=== PATIENT | female | born 1995 | race Caucasian/White ===

== ENCOUNTER 2016-07-04 15:32 | Emergency (ER) | payer MEDICAID, OTHER ==
[~2016-07-04] VITALS: Ht 162.6 cm; Wt 53.0 kg
[~2016-07-04 15:32] MED LIST: ADVI200C9 PO; IBUP-232 PO
[2016-07-04 15:37] VITALS: BP 117/76; PULSE 96; RESP 16; TEMP 97.7; O2SAT 98
--- NOTE | 2016-07-04 17:02 | PD ---
HPI Chief Complaint: GI Complaint Time Seen by Provider: 16:47 Travel History International Travel<30 days: No Contact w/Intl Traveler<30days: No Traveled to known affect area: No History of Present Illness HPI 20-year-old female complains of headache with nausea vomiting. Patient states that symptoms started this morning. Patient states that she has syncopal episode this morning also. Patient denies any injury from the syncopal episode. Patient states that she has recurrent headache since she was 12-year- old. Patient was seen by physician at that time for headache. Patient states that she never had CT scan of the brain. Patient states that headache is frontal throbbing headache. Patient denies any visual change. Patient denies any photophobia. Patient states that she has nausea vomiting with headache. Patient denies any neck pain. She denies any chest pain or shortness of breath. Patient denies abdominal pain. Patient denied dysuria or frequency. Patient denies any vaginal discharge or bleeding. Patient absolutely denies any chance of being . Patient states that she was told she has plus headache and migraine headache in the past. PFSH Past Medical History Asthma: Yes Diminished Hearing: No Respiratory: Yes (CHRONIC BREATHING ISSUES) Immunizations Current: Yes ?: Not LMP: 06/30/2016-CURRENTLY ON : 3 Para: 1 Miscarriage: 1 : 1 Past Surgical History Oral Surgery: Yes (TOOTH EXTRACTION) Social History Alcohol Use: No Tobacco Use: No Substance Use: No Allergies-Medications (Allergen,Severity, Reaction): Coded Allergies: Penicillin (Verified Allergy, Severe, hives, 07/04/16) Seafood (Verified Allergy, Severe, PT DENIES ALLERGY, 07/04/16) [place] (Verified Allergy, Intermediate, rash and hives, 07/04/16) Sulfa (Verified Allergy, Intermediate, ITCHING, 07/04/16) Bactrim (Verified Adverse Reaction, Intermediate, HIVES, 07/04/16) Reported Meds & Prescriptions Reported Meds & Active Scripts Active No Active Prescriptions or Reported Medications Review of Systems General / Constitutional: No: Fever Eyes: No: Visual changes HENT: Positive: Headaches Cardiovascular: No: Chest Pain or Discomfort Respiratory: No: Shortness of Breath Gastrointestinal: Positive: Nausea, Vomiting, No: Abdominal Pain Genitourinary: No: Dysuria Musculoskeletal: No: Pain Skin: No Rash Neurologic: No: Weakness Psychiatric: No: Depression Endocrine: No: Polydipsia Hematologic/Lymphatic: No: Easy Bruising Physical Exam Narrative GENERAL: Well-nourished, well-developed patient. SKIN: Warm and dry. HEAD: Normocephalic. EYES: No scleral icterus. No injection or drainage. Pupils 3 millimeters equal reactive. NECK: Supple, trachea midline. No JVD or lymphadenopathy. No meningismus CARDIOVASCULAR: Regular rate and rhythm without murmurs, gallops, or rubs. RESPIRATORY: Breath sounds equal bilaterally. No accessory muscle use. GASTROINTESTINAL: Abdomen soft, non-tender, nondistended. MUSCULOSKELETAL: No cyanosis, or edema. BACK: Nontender without obvious deformity. No CVA tenderness. Neurologic exam normal. Data Data Last Documented VS Vital Signs Date Time Temp Pulse Resp B/P Pulse Ox O2 Delivery O2 Flow Rate FiO2 07/04/16 15:37 97.7 96 16 117/[address] Brain W/O Iv Contrast(Rout) (07/04/16 16:56) [facility] Medical Decision Making Medical Screen Exam Complete: Yes Emergency Medical Condition: Yes Interpretation(s) [address] scan of the brain negative acute pathology. Differential Diagnosis Differential diagnosis including migraine headache, tension headache, cluster headache. Narrative Course 20-year-old female with headache, nausea vomiting and syncope. History of recurrent headache. Diagnosis Primary Impression: Cephalgia Qualified Code: R51 - Nonintractable episodic headache, unspecified headache type Patient Instructions: General Instructions Additional Instructions: Take medication as needed for headache. Follow-up with neurologist. Return if worse. Med/Other Pt SpecificInfo: Prescription(s) given Scripts Ondansetron Odt (Zofran Odt)4 Mg Tab4 Mg SL Q6HR PRN (Nausea/Vomiting) #10 TAB Ref 0 Prov:Oni Adorno MD 07/04/16 Ilwnnjdasr-Zenxsspcxzwgj-Vrtgwrdr (Fioricet)50-300-40 Mg Cap1-2 Cap PO Q6H PRN ( HEADACHE) #30 CAP Ref 0 Prov:Oni Adorno MD 07/04/16 Disposition: 01 DISCHARGE HOME Condition: Stable Oni Adorno MD Jul 04, 2016 17:02
--- NOTE | 2016-07-04 17:38 | RADHPO ---
EXAM DATE/TIME: 07/04/2016 17:18 [place] COMPARISON: No previous studies available for comparison. INDICATIONS : Cephalgia.Nausea. Vomiting. RADIATION DOSE: 51.64 CTDIvol (mGy) MEDICAL HISTORY : None SURGICAL HISTORY : None. ENCOUNTER: Initial ACUITY: 1 day PAIN SCALE: 5/10 LOCATION: Bilateral frontal TECHNIQUE: Multiple contiguous axial images were obtained of the head. Using automated exposure control and adj ustment of the mA and/or kV according to patient size, radiation dose was kept as low as reasonably a chievable to obtain optimal diagnostic quality images. FINDINGS: CEREBRUM: The ventricles are normal for age. No evidence of midline shift, mass lesion, hemorrhage or acute in farction. No extra-axial fluid collections are seen. POSTERIOR FOSSA: The cerebellum and brainstem are intact. The 4th ventricle is midline. The cerebellopontine angle i s unremarkable. EXTRACRANIAL: The visualized portion of the orbits is intact. SKULL: The calvaria is intact. No evidence of skull fracture. CONCLUSION: Normal examination. Tierra Tanner MD on July 04, 2016 at 17:36 Board Certified Radiologist. This report was verified electronically.
[2016-07-04] MEDS ORDERED: BUTA1CAP PO (17:46)
[2016-07-04] MEDS ORDERED: ZOFR4TAB3 SL (17:46)
[2016-07-04 18:24] VITALS: BP 113/74
== END 2016-07-04 18:24 | disposition home or self-care (01) ==
LOC: PHED 15:32 → PHEFT 18:24
DX: R51 Headache (principal); J45.909 Unspecified asthma, uncomplicated
CPT/HCPCS: 70450

== ENCOUNTER 2016-08-02 10:07 | Emergency (ER) | payer MEDICAID ==
[~2016-08-02] VITALS: Ht 165.1 cm; Wt 52.0 kg
[~2016-08-02 10:07] MED LIST changes: -ADVI200C9 PO; +BUTA1CAP PO; -IBUP-232 PO; +ZOFR4TAB3 SL
[2016-08-02 10:12] VITALS: BP 100/75; PULSE 87; RESP 16; TEMP 97.7; O2SAT 100
--- NOTE | 2016-08-02 10:47 | PD ---
HPI Chief Complaint: ENT Complaint Time Seen by Provider: 10:40 Travel History International Travel<30 days: No Contact w/Intl Traveler<30days: No Traveled to known affect area: No History of Present Illness HPI 21-year-old female came to the emergency room with history of sore throat. Her boyfriend is here with her. He is giving additional history. Patient says that she feels like there are needles in her throat. She has been sick since July 11. Her boyfriend was sick around the same time as well. He was seen in an urgent care and was diagnosed with strep throat and was started on amoxicillin. He says that he had some amoxicillin left over from his treatment and when she got sick she started taking those medications and took 250 mg twice a day for less than one week. She felt better after that but she also ran out of amoxicillin so she did not refill. Patient does not have primary care and hence did not go to see any doctor. About a week ago her symptoms started to return and last night she was worse with the pain. Patient has had multiple strep throats in the past. She felt like she had fever yesterday but did not take her temperature. Vital signs here are stable. Patient says that she is allergic to penicillin but apparently she tolerated amoxicillin just fine. [facility] Past Medical History Narrative Medical List of her past medical, social and family history is reviewed from the nursing note. Asthma: Yes Diminished Hearing: No Respiratory: Yes (CHRONIC BREATHING ISSUES) Immunizations Current: Yes ?: Not : 3 Para: 1 Miscarriage: 1 : 1 Past Surgical History Oral Surgery: Yes (TOOTH EXTRACTION) Social History Alcohol Use: Yes ("[employer]", OCCASIONALLY) Tobacco Use: No Substance Use: No Allergies-Medications (Allergen,Severity, Reaction): Coded Allergies: Penicillin (Verified Allergy, Severe, hives, 08/02/16) Seafood (Verified Allergy, Severe, PT DENIES ALLERGY, 08/02/16) [place] (Verified Allergy, Intermediate, rash and hives, 08/02/16) Sulfa (Verified Allergy, Intermediate, ITCHING, 08/02/16) Bactrim (Verified Adverse Reaction, Intermediate, HIVES, 08/02/16) Comments List of her allergies reviewed from the nursing note. Reported Meds & Prescriptions Reported Meds & Active Scripts Active Amoxicillin 500 Mg Cap 500 Mg PO TID 10 Days Narrative Medication List of her home medications reviewed from the nursing note. Review of Systems Except as stated in HPI: all other systems reviewed are Neg Physical Exam Narrative GENERAL: Awake, alert, mild distress SKIN: Warm and dry. HEAD: Atraumatic. Normocephalic. EYES: Pupils equal and round. No scleral icterus. No injection or drainage. ENT: No nasal bleeding or discharge. Mucous membranes pink and moist. Pharyngeal erythema with exudates of the tonsil. Submandibular lymphadenopathy which are tender NECK: Trachea midline. No JVD. CARDIOVASCULAR: Regular rate and rhythm. No murmur appreciated. RESPIRATORY: No accessory muscle use. Clear to auscultation. Breath sounds equal bilaterally. GASTROINTESTINAL: Abdomen soft, non-tender, nondistended. Hepatic and splenic margins not palpable. MUSCULOSKELETAL: No obvious deformities. No clubbing. No cyanosis. No edema. NEUROLOGICAL: Awake and alert. No obvious cranial nerve deficits. Motor grossly within normal limits. Normal speech. PSYCHIATRIC: Appropriate mood and affect; insight and judgment normal. Data Data Last Documented VS Orders Group A Rapid Strep Screen (08/02/16 11:13) Amoxicillin (Trimox) (08/02/16 11:15) Ibuprofen (Motrin) (08/02/16 11:15) Strep Culture (Group A) (08/02/16 11:16) MDM Medical Decision Making Medical Screen Exam Complete: Yes Emergency Medical Condition: Yes Medical Record Reviewed: Yes Differential Diagnosis Strep throat, pharyngitis Narrative Course 11:53 AM rapid strep is negative. However patient is partially treated at this point given her one week of suboptimal amoxicillin treatment. I would prefer to start her on amoxicillin for 10 days of higher dose. I have explained this to the patient along with the fact that she should not take somebody else's medications without her doctor's advise. She understands. She was given a dose of amoxicillin and Motrin here. Patient will be discharged home. Procedures EKG Prior to Arrival: No Diagnosis Primary Impression: Odynophagia Additional Impression: Strep throat Referrals: Primary Care Physician 3 days Additional Instructions: Please return to the ER if the condition worsens or any other new concerns. Take the medication as per the prescription direction and complete the course. Do not take someone else's medications without her doctor's advise. Do not share drinks, toothbrush, or anything else by mouth. Med/Other Pt SpecificInfo: Prescription(s) given Scripts Amoxicillin 500 Mg [id number] Mg PO TID 10 Days Ref 0 Prov:Jerel Duran MD 08/02/16 Disposition: 01 DISCHARGE HOME Condition: Stable Jerel Duran MD Aug 02, 2016 10:47 Scripts Amoxicillin 500 Mg [id number] Mg PO TID 10 Days Ref 0 Prov:Jerel Duran MD 08/02/16 Disposition: 01 DISCHARGE HOME Condition: Jerel Baker MD Aug 02, 2016 10:47
[2016-08-02] MEDS ORDERED: IBUPROFEN 600 MG TAB PO ONE (11:15)
[2016-08-02] MEDS ORDERED: AMOXICILLIN (TRIHYDRATE) 500 MG CAP PO ONE (11:15)
[2016-08-02] MEDS ORDERED: AMOX500C PO (11:56)
== END 2016-08-02 12:41 | disposition home or self-care (01) ==
LOC: PHEFT 10:07
DX: R13.10 Dysphagia, unspecified (principal)
CPT/HCPCS: 87081; 87880; 99283

== ENCOUNTER 2016-09-18 17:20 | Emergency (ER) | payer MEDICAID, OTHER ==
[~2016-09-18] VITALS: Ht 162.6 cm; Wt 54.0 kg
[~2016-09-18 17:20] MED LIST changes: +AMOX500C PO; -BUTA1CAP PO; -ZOFR4TAB3 SL
[2016-09-18 17:23] VITALS: BP 104/80; PULSE 115; RESP 16; TEMP 97.9; O2SAT 98
[2016-09-18] MEDS ORDERED: SODIUM CHLOR 0.9% 1000 ML INJ 1,000 ML IV SCH (18:02)
--- NOTE | 2016-09-18 18:06 | PD ---
HPI Chief Complaint: GI Complaint Time Seen by Provider: 17:54 Travel History International Travel<30 days: No Contact w/Intl Traveler<30days: No Traveled to known affect area: No History of Present Illness HPI The patient is a 21-year-old female who presents to the emergency department for nausea, vomiting, diarrhea, and intermittent abdominal pain. The patient states her symptoms started earlier today with diarrhea, described as watery without any visible blood. The patient then developed nausea followed by several episodes of vomiting. The patient complains of suprapubic and left lower quadrant abdominal pain that is described as sharp, crampy, and intermittent. The patient denies any fever, chills, sweats, or sick contacts. The patient denies any recent international travel, eating of unusual foods, or drinking well water. The patient denies any previous abdominal surgeries. The patient's last menstrual cycle was August 21, 2016, she denies . The patient denies any vaginal bleeding, vaginal discharge, dysuria, frequency, urgency, or hematuria. PFSH Past Medical History Asthma: Yes Diminished Hearing: No Respiratory: Yes (CHRONIC BREATHING ISSUES) Immunizations Current: Yes Influenza Vaccination: No ?: Not LMP: 08/21/16 : 3 Para: 1 Miscarriage: 1 : 1 Past Surgical History Oral Surgery: Yes (TOOTH EXTRACTION) Social History Alcohol Use: Yes ("C[employer]", OCCASIONALLY) Tobacco Use: No Substance Use: No Allergies-Medications (Allergen,Severity, Reaction): Coded Allergies: Penicillin (Verified Allergy, Severe, hives, 08/02/16) Seafood (Verified Allergy, Severe, PT DENIES ALLERGY, 08/02/16) [place] (Verified Allergy, Intermediate, rash and hives, 08/02/16) Sulfa (Verified Allergy, Intermediate, ITCHING, 08/02/16) Bactrim (Verified Adverse Reaction, Intermediate, HIVES, 08/02/16) Reported Meds & Prescriptions Reported Meds & Active Scripts Active Phenergan (Promethazine HCl) 25 Mg Tab 25 Mg PO Q6H PRN Zofran Odt (Ondansetron Odt) 4 Mg Tab 4 Mg SL Q6HR PRN Zofran Odt (Ondansetron Odt) 4 Mg Tab 4 Mg SL Q6HR PRN Review of Systems Except as stated in HPI: all other systems reviewed are Neg General / Constitutional: No: Fever Cardiovascular: No: Chest Pain or Discomfort Respiratory: No: Shortness of Breath Gastrointestinal: Positive: Nausea, Vomiting, Diarrhea, Abdominal Pain Genitourinary: No: Dysuria Musculoskeletal: No: Weakness Neurologic: No: Dizziness Physical Exam Narrative GENERAL: Awake, alert, pleasant 21-year-old female who appears her stated age and is in no acute respiratory distress. SKIN: Focused skin assessment warm/dry. HEAD: Atraumatic. Normocephalic. EYES: Pupils equal and round. No scleral icterus. No injection or drainage. ENT: No nasal bleeding or discharge. Tongue ring in place. Slightly dry mucous membranes. NECK: Trachea midline. No JVD. CARDIOVASCULAR: Regular, tachycardic with a heart rate of 110. RESPIRATORY: No accessory muscle use. Clear to auscultation. Breath sounds equal bilaterally. GASTROINTESTINAL: Abdomen soft, mild tenderness in the left lower quadrant. Negative McBurney's. Negative Hauser's. Back: No CVA tenderness. Musculoskeletal: No cyanosis, clubbing, or edema. NEUROLOGICAL: Awake and alert. No obvious cranial nerve deficits. Motor grossly within normal limits. Normal speech. PSYCHIATRIC: Appropriate mood and affect; insight and judgment normal. Data Data Last Documented VS Vital Signs Date Time Temp Pulse Resp B/P Pulse Ox O2 Delivery O2 Flow Rate FiO2 09/18/16 19:20 98.7 86 18 103/77 99 Room Air Orders Complete Blood Count With Diff (09/18/16 18:02) Comprehensive Metabolic Panel (09/18/16 18:02) Lipase (09/18/16 18:02) Urinalysis - C+S If Indicated (09/18/16 18:02) Iv Access Insert/Monitor (09/18/16 18:02) Ecg Monitoring (09/18/16 18:02) Oximetry (09/18/16 18:02) Morphine Inj (Morphine Inj) (09/18/16 18:15) Ondansetron Inj (Zofran Inj) (09/18/16 18:15) Sodium Chlor 0.9% 1000 Ml Inj (Ns 1000 M (09/18/16 18:02) Sodium Chloride 0.9% Flush (Ns Flush) (09/18/16 18:15) Famotidine Inj (Pepcid Inj) (09/18/16 18:15) Dicyclomine (Bentyl) (09/18/16 18:15) Ondansetron Inj (Zofran Inj) (09/18/16 19:00) Labs Laboratory Tests Test 09/18/16 09/18/16 18:18 18:20 White Blood Count 13.2 TH/MM3 Red Blood Count 5.27 MIL/MM3 Hemoglobin 14.6 GM/DL Hematocrit 43.7 % Mean Corpuscular Volume 82.9 FL Mean Corpuscular Hemoglobin 27.8 PG Mean Corpuscular Hemoglobin 33.5 % Concent Red Cell Distribution Width 13.5 % Platelet Count 289 TH/MM3 Mean Platelet Volume 7.8 FL Neutrophils (%) (Auto) 89.9 % Lymphocytes (%) (Auto) 3.8 % Monocytes (%) (Auto) 3.0 % Eosinophils (%) (Auto) 0.5 % Basophils (%) (Auto) 2.8 % Neutrophils # (Auto) 11.8 TH/MM3 Lymphocytes # (Auto) 0.5 TH/MM3 Monocytes # (Auto) 0.4 TH/MM3 Eosinophils # (Auto) 0.1 TH/MM3 Basophils # (Auto) 0.4 TH/MM3 CBC Comment DIFF FINAL Differential Comment Sodium Level 138 MEQ/L Potassium Level 3.5 MEQ/L Chloride Level 103 MEQ/L Carbon Dioxide Level 24.7 MEQ/L Anion Gap 10 MEQ/L Blood Urea Nitrogen 14 MG/DL Creatinine 0.88 MG/DL Estimat Glomerular Filtration 81 ML/MIN Rate Random Glucose 97 MG/DL Calcium Level 9.0 MG/DL Total Bilirubin 1.6 MG/DL Aspartate Amino Transf 16 U/L (AST/SGOT) Alanine Aminotransferase 22 U/L (ALT/SGPT) Alkaline Phosphatase 100 U/L Total Protein 8.5 GM/DL Albumin 4.3 GM/DL Lipase 148 U/L Urine Color YELLOW Urine Turbidity CLEAR Urine pH 6.0 Urine Specific [place] 1.025 Urine Protein NEG mg/dL Urine Glucose (UA) NEG mg/dL Urine Ketones NEG mg/dL Urine Occult Blood NEG Urine Nitrite NEG Urine Bilirubin NEG Urine Leukocyte Esterase NEG Urine WBC 0-2 /hpf Urine Squamous Epithelial 0-5 /hpf Cells Urine Bacteria RARE /hpf Microscopic Urinalysis Comment CULT NOT INDICATED MDM Medical Decision Making Medical Screen Exam Complete: Yes Emergency Medical Condition: Yes Medical Record Reviewed: Yes Interpretation(s) UA unremarkable Laboratory Tests Test 09/18/16 18:18 White Blood Count 13.2 TH/MM3 Red Blood Count 5.27 MIL/MM3 Hemoglobin 14.6 GM/DL Hematocrit 43.7 % Mean Corpuscular Volume 82.9 FL Mean Corpuscular Hemoglobin 27.8 PG Mean Corpuscular Hemoglobin 33.5 % Concent Red Cell Distribution Width 13.5 % Platelet Count 289 TH/MM3 Mean Platelet Volume 7.8 FL Neutrophils (%) (Auto) 89.9 % Lymphocytes (%) (Auto) 3.8 % Monocytes (%) (Auto) 3.0 % Eosinophils (%) (Auto) 0.5 % Basophils (%) (Auto) 2.8 % Neutrophils # (Auto) 11.8 TH/MM3 Lymphocytes # (Auto) 0.5 TH/MM3 Monocytes # (Auto) 0.4 TH/MM3 Eosinophils # (Auto) 0.1 TH/MM3 Basophils # (Auto) 0.4 TH/MM3 CBC Comment DIFF FINAL Differential Comment Sodium Level 138 MEQ/L Potassium Level 3.5 MEQ/L Chloride Level 103 MEQ/L Carbon Dioxide Level 24.7 MEQ/L Anion Gap 10 MEQ/L Blood Urea Nitrogen 14 MG/DL Creatinine 0.88 MG/DL Estimat Glomerular Filtration 81 ML/MIN Rate Random Glucose 97 MG/DL Calcium Level 9.0 MG/DL Total Bilirubin 1.6 MG/DL Aspartate Amino Transf 16 U/L (AST/SGOT) Alanine Aminotransferase 22 U/L (ALT/SGPT) Total Protein 8.5 GM/DL Albumin 4.3 GM/DL Lipase 148 U/L Differential Diagnosis Differential diagnosis includes gastroenteritis, infectious diarrhea, enteritis , colitis, atypical appendicitis, dehydration, electrolyte abnormality. Narrative Course IV was established, labs are drawn and sent, and the patient was placed on cardiac telemetry monitoring and continuous pulse oximetry monitoring. The patient was administered morphine, Zofran, Bentyl, Pepcid, and IV fluids. The patient was reevaluated at 6:50 PM, she still had mild nausea, however, the pain had resolved. The patient was administered another dose of Zofran. White count is mildly elevated at 13.2, abdominal exam is now benign, do not believe the patient has atypical appendicitis. The patient will be discharged home on Zofran/Phenergan and advised to have a clear liquid diet and advance as tolerated. She is advised to return if pain localizes to the right lower quadrant and she develops a fever. Diagnosis Primary Impression: Gastroenteritis Patient Instructions: General Instructions Additional Instructions: Medications as directed. Clear liquid diet and advance as tolerated. Zofran as needed for pain. Follow-up with your primary physician. Return if symptoms worsen or progress. Med/Other Pt SpecificInfo: Prescription(s) given Scripts Promethazine (Phenergan)25 Mg Tab25 Mg PO Q6H PRN (Nausea/Vomiting) #12 TAB Ref 0 Prov:Praful Kramer MD 09/18/16 Ondansetron Odt (Zofran Odt)4 Mg Tab4 Mg SL Q6HR PRN (Nausea/Vomiting) #7 TAB Ref 0 Prov:Praful Kramer MD 09/18/16 Ondansetron Odt (Zofran Odt)4 Mg Tab4 Mg SL Q6HR PRN (Nausea/Vomiting) #10 TAB Ref 0 Prov:Praful Kramer MD 09/18/16 Disposition: 01 DISCHARGE HOME Condition: Stable Praful Kramer MD Sep 18, 2016 18:06
[2016-09-18] MEDS ORDERED: SODIUM CHLORIDE 0.9% FLUSH 10 ML FLUSH IV FLUSH PRN (18:15)
[2016-09-18] MEDS ORDERED: DICYCLOMINE HCL 10 MG CAP PO ONE (18:15)
[2016-09-18] MEDS ORDERED: FAMOTIDINE 20 MG/2 ML VIAL IV PUSH ONE (18:15)
[2016-09-18] MEDS ORDERED: MORPHINE SULFATE 4 MG/ML INJ IV PUSH ONE (18:15)
[2016-09-18] MEDS ORDERED: ONDANSETRON HCL 4 MG/2 ML VIAL IVP ONE (18:15)
[2016-09-18 18:20] VITALS: O2SAT 98
[2016-09-18 18:30] LABS: AUTOMATED NEUTROPHIL # 11.8 TH/MM3 (1.8-7.7); BASOPHIL # 0.4 TH/MM3 (0-0.2); BASOPHIL % 2.8 % (0.0-2.0); EOSINOPHIL # 0.1 TH/MM3 (0-0.4); EOSINOPHIL % 0.5 % (0.0-4.0); HEMATOCRIT 43.7 % (35.0-46.0); LYMPH % 3.8 % (9.0-44.0); LYMPHOCYTE # 0.5 TH/MM3 (1.0-4.8); MEAN CELL VOLUME 82.9 FL (80.0-100.0); MEAN CORPUSCULAR HEMOGLOBIN 27.8 PG (27.0-34.0); MEAN CORPUSCULAR HGB CONC 33.5 % (32.0-36.0); NEUT % 89.9 % (16.0-70.0); PLATELET COUNT 289 TH/MM3 (150-450); RED BLOOD COUNT 5.27 MIL/MM3 (4.00-5.30); RED CELL DISTRIBUTION WIDTH 13.5 % (11.6-17.2); WHITE BLOOD COUNT 13.2 TH/MM3 (4.0-11.0)
[2016-09-18 18:34] LABS: BLOOD, URINE NEG (NEG); GLUCOSE,URINE NEG (NEG); KETONE, URINE NEG (NEG); NITRITE,URINE NEG (NEG)
[2016-09-18] MEDS ORDERED: ZOFR4TAB3 SL ×2 (18:36→18:51)
[2016-09-18 18:40] LABS: HEMO FLAGS DIFF FINAL
[2016-09-18 18:41] LABS: CHLORIDE 103 MEQ/L (98-107); POTASSIUM 3.5 MEQ/L (3.5-5.1); SODIUM (NA) 138 MEQ/L (136-145)
[2016-09-18 18:45] LABS: ANION GAP 10 MEQ/L (5-15); BICARBONATE 24.7 MEQ/L (21.0-32.0); BLOOD UREA NITROGEN 14 MG/DL (7-18)
[2016-09-18 18:48] LABS: ALT (GPT) 22 U/L (10-53); AST (GOT) 16 U/L (15-37); GLOMERULAR FILTRATION RATE 81 ML/MIN (>89)
[2016-09-18 18:49] LABS: TOTAL BILIRUBIN ADULT 1.6 MG/DL (0.2-1.0)
[2016-09-18 18:50] LABS: ALKALINE PHOSPHATASE 100 U/L (45-117)
[2016-09-18] MEDS ORDERED: PROM25TA5 PO (18:51)
[2016-09-18 19:00] LABS: URINE COLOR YELLOW (YELLW/STRAW)
[2016-09-18] MEDS ORDERED: ONDANSETRON HCL 4 MG/2 ML VIAL IV PUSH ONE (19:00)
[2016-09-18 19:01] LABS: BACTERIA, URINE RARE /hpf; COMMENT (UR) CULT NOT INDICATED; CULTURE IF INDICATED CULT NOT INDICATED; SQUAMOUS EPITHELIAL CELL URINE 0-5 /hpf (0-5); WBC, URINE 0-2 /hpf (0-5)
[2016-09-18 19:20] VITALS: BP 103/77; PULSE 86; RESP 18; TEMP 98.7; O2SAT 99
== END 2016-09-18 20:04 | disposition home or self-care (01) ==
LOC: PHED 17:20
DX: K52.9 Noninfective gastroenteritis and colitis, unspecified (principal); J45.909 Unspecified asthma, uncomplicated
CPT/HCPCS: 80053; 81001; 83690; 85025; 96361; 96374; 96375; 99284; J2270; J2405; J7030

== ENCOUNTER 2016-10-17 16:01 | Emergency (ER) | payer MEDICAID, OTHER ==
[~2016-10-17] VITALS: Ht 165.1 cm; Wt 55.0 kg
[~2016-10-17 16:01] MED LIST changes: -AMOX500C PO; +PROM25TA5 PO; +ZOFR4TAB3 SL
[2016-10-17 16:08] VITALS: BP 109/74; PULSE 80; RESP 16; TEMP 98.5; O2SAT 100
[2016-10-17] MEDS ORDERED: SODIUM CHLOR 0.9% 1000 ML INJ 1,000 ML IV SCH (16:37)
[2016-10-17] MEDS ORDERED: ONDANSETRON HCL 4 MG/2 ML VIAL IVP ONE (16:45)
[2016-10-17] MEDS ORDERED: MORPHINE SULFATE 4 MG/ML INJ IV PUSH ONE (16:45)
[2016-10-17] MEDS ORDERED: SODIUM CHLORIDE 0.9% FLUSH 10 ML FLUSH IV FLUSH PRN (16:45)
[2016-10-17 16:53] LABS: BLOOD, URINE SMALL (NEG); GLUCOSE,URINE NEG (NEG); KETONE, URINE NEG (NEG); NITRITE,URINE NEG (NEG); PH, URINE 6.5 (5.0-8.5)
[2016-10-17 16:54] LABS: BASOPHIL # 0.1 TH/MM3 (0-0.2); BASOPHIL % 0.8 % (0.0-2.0); EOSINOPHIL # 0.8 TH/MM3 (0-0.4); EOSINOPHIL % 8.1 % (0.0-4.0); LYMPH % 30.4 % (9.0-44.0); LYMPHOCYTE # 2.8 TH/MM3 (1.0-4.8); MEAN CELL VOLUME 84.5 FL (80.0-100.0); MEAN CORPUSCULAR HEMOGLOBIN 27.4 PG (27.0-34.0); MEAN CORPUSCULAR HGB CONC 32.4 % (32.0-36.0); MONO % 6.5 % (0.0-8.0); NEUT % 54.2 % (16.0-70.0); PLATELET COUNT 304 TH/MM3 (150-450); RED BLOOD COUNT 4.97 MIL/MM3 (4.00-5.30); RED CELL DISTRIBUTION WIDTH 14.4 % (11.6-17.2); WHITE BLOOD COUNT 9.3 TH/MM3 (4.0-11.0)
[2016-10-17 17:00] LABS: HEMO FLAGS DIFF FINAL
--- NOTE | 2016-10-17 17:04 | PD ---
HPI Chief Complaint: Flank/Kidney Pain Time Seen by Provider: 16:37 Travel History International Travel<30 days: No Contact w/Intl Traveler<30days: No Traveled to known affect area: No History of Present Illness HPI 21-year-old female presents to the ER today with right flank and right lower quadrant abdominal pains that started today on its own. She states that the pain is currently a sharp 7 out of 10 pain which is throbbing. She has been nauseous, but denies any vomiting, diarrhea, fevers, or any other symptoms. She denies any urinary symptoms, discharge. Modifying Factors: None Associated Signs & Symptoms: Right lower quadrant, right flank pain Risk Factors: None PFSH Past Medical History Asthma: Yes Diminished Hearing: No Respiratory: Yes (CHRONIC BREATHING ISSUES) Immunizations Current: Yes Influenza Vaccination: No ?: Not LMP: NOW : 3 Para: 1 Miscarriage: 1 : 1 Past Surgical History Oral Surgery: Yes (TOOTH EXTRACTION) Social History Alcohol Use: Yes ("COUPLE BEERS", OCCASIONALLY) Tobacco Use: No Substance Use: No Allergies-Medications (Allergen,Severity, Reaction): Coded Allergies: Penicillin (Verified Allergy, Severe, hives, 10/17/16) Seafood (Verified Allergy, Severe, PT DENIES ALLERGY, 10/17/16) [place] (Verified Allergy, Intermediate, rash and hives, 10/17/16) Sulfa (Verified Allergy, Intermediate, ITCHING, 10/17/16) Bactrim (Verified Adverse Reaction, Intermediate, HIVES, 10/17/16) Reported Meds & Prescriptions Reported Meds & Active Scripts Active Review of Systems Except as stated in HPI: all other systems reviewed are Neg Physical Exam Narrative GENERAL: Well-developed young white female patient currently in moderate distress. Awake and oriented 3. SKIN: Focused skin assessment warm/dry. HEAD: Atraumatic. Normocephalic. EYES: Pupils equal and round. No scleral icterus. No injection or drainage. ENT: No nasal bleeding or discharge. Mucous membranes pink and moist. NECK: Trachea midline. No JVD. CARDIOVASCULAR: Regular rate and rhythm. No murmur appreciated. RESPIRATORY: No accessory muscle use. Clear to auscultation. Breath sounds equal bilaterally. GASTROINTESTINAL: Abdomen soft, right lower quadrant tenderness without guarding or rebound, nondistended. Hepatic and splenic margins not palpable. GENITOURINARY: Normal external genitalia without lesions or erythema. Vaginal vault with blood but no significant drainage. Cervical os was closed without drainage. No cervical motion tenderness. Uterus nontender and nonenlarged. Bilateral adnexa nontender without masses. MUSCULOSKELETAL: No obvious deformities. No clubbing. No cyanosis. No edema. NEUROLOGICAL: Awake and alert. No obvious cranial nerve deficits. Motor grossly within normal limits. Normal speech. PSYCHIATRIC: Appropriate mood and affect; insight and judgment normal. Data Data Last Documented VS Vital Signs Date Time Temp Pulse Resp B/P Pulse Ox O2 Delivery O2 Flow Rate FiO2 10/17/16 17:16 16 10/17/16 17:15 100 Room Air 10/17/16 17:13 82 106/55 10/17/16 16:08 98.5 Orders Complete Blood Count With Diff (10/17/16 16:37) Comprehensive Metabolic Panel (10/17/16 16:37) Lipase (10/17/16 16:37) Urinalysis - C+S If Indicated (10/17/16 16:37) Ct Abd/Pel W Iv Contrast(Rout) (10/17/16 16:37) Iv Access Insert/Monitor (10/17/16 16:37) Ecg Monitoring (10/17/16 16:37) Oximetry (10/17/16 16:37) Morphine Inj (Morphine Inj) (10/17/16 16:45) Ondansetron Inj (Zofran Inj) (10/17/16 16:45) Sodium Chlor 0.9% 1000 Ml Inj (Ns 1000 M (10/17/16 16:37) Sodium Chloride 0.9% Flush (Ns Flush) (10/17/16 16:45) Ed Urine Pregnancytest Poc (10/17/16 16:37) Urine Culture (10/17/16 16:40) Iohexol 350 Inj (Omnipaque 350 Inj) (10/17/16 17:33) Us Pelvis Comp Logistics Project Manager/Non-Preg (10/17/16 17:54) Gc And Chlamydia Pcr (10/17/16 17:55) Wet Prep Profile (10/17/16 17:55) Labs Laboratory Tests Test 10/17/16 10/17/16 16:40 17:55 White Blood Count 9.3 TH/MM3 Red Blood Count 4.97 MIL/MM3 Hemoglobin 13.6 GM/DL Hematocrit 42.0 % Mean Corpuscular Volume 84.5 FL Mean Corpuscular Hemoglobin 27.4 PG Mean Corpuscular Hemoglobin 32.4 % Concent Red Cell Distribution Width 14.4 % Platelet Count 304 TH/MM3 Mean Platelet Volume 8.4 FL Neutrophils (%) (Auto) 54.2 % Lymphocytes (%) (Auto) 30.4 % Monocytes (%) (Auto) 6.5 % Eosinophils (%) (Auto) 8.1 % Basophils (%) (Auto) 0.8 % Neutrophils # (Auto) 5.0 TH/MM3 Lymphocytes # (Auto) 2.8 TH/MM3 Monocytes # (Auto) 0.6 TH/MM3 Eosinophils # (Auto) 0.8 TH/MM3 Basophils # (Auto) 0.1 TH/MM3 CBC Comment DIFF FINAL Differential Comment Urine Collection Type CLEAN CATCH Urine Color YELLOW Urine Turbidity CLEAR Urine pH 6.5 Urine Specific [place] 1.018 Urine Protein NEG mg/dL Urine Glucose (UA) NEG mg/dL Urine Ketones NEG mg/dL Urine Occult Blood SMALL Urine Nitrite NEG Urine Bilirubin NEG Urine Leukocyte Esterase NEG Urine RBC 4-9 /hpf Urine WBC 0-2 /hpf Urine Squamous Epithelial 6-8 /hpf Cells Urine Bacteria MOD /hpf Microscopic Urinalysis Comment CULTURE INDICATED Urine Collection Time 16:40 Sodium Level 142 MEQ/L Potassium Level 3.9 MEQ/L Chloride Level 106 MEQ/L Carbon Dioxide Level 29.6 MEQ/L Anion Gap 6 MEQ/L Blood Urea Nitrogen 14 MG/DL Creatinine 0.98 MG/DL Estimat Glomerular Filtration 72 ML/MIN Rate Random Glucose 101 MG/DL Calcium Level 8.9 MG/DL Total Bilirubin 0.5 MG/DL Aspartate Amino Transf 21 U/L (AST/SGOT) Alanine Aminotransferase 21 U/L (ALT/SGPT) Alkaline Phosphatase 111 U/L Total Protein 8.0 GM/DL Albumin 4.2 GM/DL Lipase 181 U/L Clue Cells (Wet Prep) NONE SEEN Vaginal Trichomonas (Wet Prep) NONE SEEN Vaginal Yeast (Wet Prep) NONE SEEN MDM Medical Decision Making Medical Screen Exam Complete: Yes Emergency Medical Condition: Yes Medical Record Reviewed: Yes Interpretation(s) Laboratory Tests Test 10/17/16 16:40 Eosinophils (%) (Auto) 8.1 % (0.0-4.0) Eosinophils # (Auto) 0.8 TH/MM3 (0-0.4) Urine Occult Blood SMALL (NEG) Urine RBC 4-9 /hpf (0-3) Urine Squamous Epithelial 6-8 /hpf (0-5) Cells Urine Bacteria MOD /hpf (NONE) Estimat Glomerular Filtration 72 ML/MIN (>89) Rate Last 24 hours Impressions Abdomen/Pelvis CT 10/17/16 1637 Signed Impressions: Service Date/Time: October 17:19 - CONCLUSION: No acute disease. Paulie Martinez MD Differential Diagnosis Right lower quadrant painsrenal colic versus pyelonephritis versus endometriosis versus appendicitis versus ovarian cyst versus ovarian torsion Narrative Course Lab work did not indicate significant metabolic issues, leukocytosis, or UTI. Her CT scan of the abdomen was negative. Pelvic exam did not show any obvious cause other the patient is currently having menses. She was given IV fluids, morphine and nausea medications in the ER. Considering continuing pain on reevaluation at 5:50 PM, pelvic ultrasound was also ordered to rule out torsion or other obvious causes such as ovarian cyst. Physician Communication Physician Communication Case is signed out to oncoming physician awaiting ultrasound. Disposition based on ultrasound. Diagnosis Primary Impression: Abdominal pain Condition: Stable Fatimah Cardoso MD October 17, 2016 17:04
[2016-10-17 17:05] LABS: CHLORIDE 106 MEQ/L (98-107); POTASSIUM 3.9 MEQ/L (3.5-5.1); SODIUM (NA) 142 MEQ/L (136-145)
[2016-10-17 17:09] LABS: ANION GAP 6 MEQ/L (5-15); BICARBONATE 29.6 MEQ/L (21.0-32.0); BLOOD UREA NITROGEN 14 MG/DL (7-18)
[2016-10-17 17:10] LABS: METHOD OF COLLECTION CLEAN CATCH; URINE COLOR YELLOW (YELLW/STRAW)
[2016-10-17 17:12] LABS: ALT (GPT) 21 U/L (10-53); AST (GOT) 21 U/L (15-37); BACTERIA, URINE MOD /hpf; COMMENT (UR) CULTURE INDICATED; CULTURE IF INDICATED CULTURE INDICATED; GLOMERULAR FILTRATION RATE 72 ML/MIN (>89); WBC, URINE 0-2 /hpf (0-5)
[2016-10-17 17:13] VITALS: BP 106/55; PULSE 82; RESP 16; O2SAT 100
[2016-10-17 17:13] LABS: TOTAL BILIRUBIN ADULT 0.5 MG/DL (0.2-1.0)
[2016-10-17 17:15] VITALS: RESP 16; O2SAT 100
[2016-10-17 17:15] LABS: ALKALINE PHOSPHATASE 111 U/L (45-117)
[2016-10-17] MEDS ORDERED: IOHEXOL 350 MG/ML 10 ML VIAL (for RAD DIAG) IV ONE (17:33)
--- NOTE | 2016-10-17 17:40 | RADHPO ---
EXAM DATE/TIME: 10/17/2016 17:19 [facility] COMPARISON: No previous studies available for comparison. INDICATIONS : Right lower quadrant pain. IV CONTRAST: 91 cc Omnipaque 350 (iohexol) IV ORAL CONTRAST: No oral contrast ingested. RADIATION DOSE: 5.09 CTDIvol (mGy) MEDICAL HISTORY : None SURGICAL HISTORY : None. ENCOUNTER: Initial ACUITY: 1 day PAIN SCALE: 7/10 LOCATION: Right lower quadrant TECHNIQUE: Volumetric scanning of the abdomen and pelvis was performed. Using automated exposure control and ad justment of the mA and/or kV according to patient size, radiation dose was kept as low as reasonably achievable to obtain optimal diagnostic quality images. FINDINGS: LOWER LUNGS: The visualized lower lungs are clear. LIVER: Homogeneous density without lesion. There is no dilation of the biliary tree. No calcified gallston es. SPLEEN: Normal size without lesion. PANCREAS: Within normal limits. KIDNEYS: Normal in size and shape. There is no mass, stone or hydronephrosis. ADRENAL GLANDS: Within normal limits. VASCULAR: There is no aortic aneurysm. BOWEL/MESENTERY: The stomach, small bowel, and colon demonstrate no acute abnormality. There is no free intraperitone al air or fluid. ABDOMINAL WALL: Within normal limits. RETROPERITONEUM: There is no lymphadenopathy. BLADDER: No wall thickening or mass. REPRODUCTIVE: Within normal limits. INGUINAL: There is no lymphadenopathy or hernia. MUSCULOSKELETAL: Within normal limits for patient age. CONCLUSION: No acute disease. Paulie Martinez MD on October 17, 2016 at 17:35 Board Certified Radiologist. This report was verified electronically.
--- NOTE | 2016-10-17 19:08 | RADHPO ---
EXAM DATE/TIME: 10/17/2016 23:45 [facility] COMPARISON: No previous studies available for comparison. INDICATIONS : Right pelvic pain. MEDICAL HISTORY : Right pelvic pain. SURGICAL HISTORY : None. ENCOUNTER: Initial ACUITY: 1 day PAIN SCORE: 4/10 LOCATION: Bilateral pelvis MEASUREMENTS: UTERUS: 8.0 x 5.6 x 3.5 cm ENDOMETRIAL STRIPE: 6 mm RIGHT OVARY: 3.2 x 3.3 x 1.7 cm LEFT OVARY: 3.4 x 3.9 x 1.5 cm FINDINGS: UTERUS: The myometrium has homogeneous echotexture without mass. RIGHT OVARY: Ovary contains no mass or significant cystic lesion. LEFT OVARY: Ovary contains no mass or significant cystic lesion. MISCELLANEOUS: No free fluid. CONCLUSION: Normal examination. Bert Stewart MD on October 17, 2016 at 19:05 Board Certified Radiologist. This report was verified electronically.
[2016-10-17 19:15] VITALS: BP 112/76; PULSE 76; RESP 16; O2SAT 100
[2016-10-17] MEDS ORDERED: CIPR-9 PO (20:48)
--- NOTE | 2016-10-17 20:50 | PD ---
Physical Exam Time Seen by Provider: 20:[address] Richardson left this patient with me to check the ultrasound and make a disposition. The CAT scan was normal. Data Data Last Documented VS Vital Signs Date Time Temp Pulse Resp B/P Pulse Ox O2 Delivery O2 Flow Rate FiO2 10/17/16 19:15 76 16 112/76 100 Room Air 10/17/16 16:08 98.5 Orders Complete Blood Count With Diff (10/17/16 16:37) Comprehensive Metabolic Panel (10/17/16 16:37) Lipase (10/17/16 16:37) Urinalysis - C+S If Indicated (10/17/16 16:37) Ct Abd/Pel W Iv Contrast(Rout) (10/17/16 16:37) Iv Access Insert/Monitor (10/17/16 16:37) Ecg Monitoring (10/17/16 16:37) Oximetry (10/17/16 16:37) Morphine Inj (Morphine Inj) (10/17/16 16:45) Ondansetron Inj (Zofran Inj) (10/17/16 16:45) Sodium Chlor 0.9% 1000 Ml Inj (Ns 1000 M (10/17/16 16:37) Sodium Chloride 0.9% Flush (Ns Flush) (10/17/16 16:45) Ed Urine Pregnancytest Poc (10/17/16 16:37) Urine Culture (10/17/16 16:40) Iohexol 350 Inj (Omnipaque 350 Inj) (10/17/16 17:33) Gc And Chlamydia Pcr (10/17/16 17:55) Wet Prep Profile (10/17/16 17:55) Us Pelvis Comp W Doppler (10/17/16 17:54) Labs Laboratory Tests Test 10/17/16 10/17/16 16:40 17:55 White Blood Count 9.3 TH/MM3 Red Blood Count 4.97 MIL/MM3 Hemoglobin 13.6 GM/DL Hematocrit 42.0 % Mean Corpuscular Volume 84.5 FL Mean Corpuscular Hemoglobin 27.4 PG Mean Corpuscular Hemoglobin 32.4 % Concent Red Cell Distribution Width 14.4 % Platelet Count 304 TH/MM3 Mean Platelet Volume 8.4 FL Neutrophils (%) (Auto) 54.2 % Lymphocytes (%) (Auto) 30.4 % Monocytes (%) (Auto) 6.5 % Eosinophils (%) (Auto) 8.1 % Basophils (%) (Auto) 0.8 % Neutrophils # (Auto) 5.0 TH/MM3 Lymphocytes # (Auto) 2.8 TH/MM3 Monocytes # (Auto) 0.6 TH/MM3 Eosinophils # (Auto) 0.8 TH/MM3 Basophils # (Auto) 0.1 TH/MM3 CBC Comment DIFF FINAL Differential Comment Urine Collection Type CLEAN CATCH Urine Color YELLOW Urine Turbidity CLEAR Urine pH 6.5 Urine Specific [place] 1.018 Urine Protein NEG mg/dL Urine Glucose (UA) NEG mg/dL Urine Ketones NEG mg/dL Urine Occult Blood SMALL Urine Nitrite NEG Urine Bilirubin NEG Urine Leukocyte Esterase NEG Urine RBC 4-9 /hpf Urine WBC 0-2 /hpf Urine Squamous Epithelial 6-8 /hpf Cells Urine Bacteria MOD /hpf Microscopic Urinalysis Comment CULTURE INDICATED Urine Collection Time 16:40 Sodium Level 142 MEQ/L Potassium Level 3.9 MEQ/L Chloride Level 106 MEQ/L Carbon Dioxide Level 29.6 MEQ/L Anion Gap 6 MEQ/L Blood Urea Nitrogen 14 MG/DL Creatinine 0.98 MG/DL Estimat Glomerular Filtration 72 ML/MIN Rate Random Glucose 101 MG/DL Calcium Level 8.9 MG/DL Total Bilirubin 0.5 MG/DL Aspartate Amino Transf 21 U/L (AST/SGOT) Alanine Aminotransferase 21 U/L (ALT/SGPT) Alkaline Phosphatase 111 U/L Total Protein 8.0 GM/DL Albumin 4.2 GM/DL Lipase 181 U/L Clue Cells (Wet Prep) NONE SEEN Vaginal Trichomonas (Wet Prep) NONE SEEN Vaginal Yeast (Wet Prep) NONE SEEN MDM Medical Record Reviewed: Yes Supervised Visit with CK: Yes Interpretation(s) The CT scan was normal and the ultrasound is normal. The urinalysis shows small occult blood, 4-9 red cells with 0-2 white cells and moderate bacteria and culture is indicated. The CBC is normal and the complete metabolic profile is normal except for a GFR of 72. Differential Diagnosis PID, cystitis, appendicitis, torsion ovary, ovarian cyst rupture Narrative Course The patient appears to have a cystitis with the bacteria in her urine. Plan: She will be tried on Cipro 500 mg twice daily for 10 days. Diagnosis Primary Impression: Cystitis Additional Instruction: Drink plenty of liquids. Follow-up with her primary care physician next week. If worse, you should return to emergency department for reevaluation. Med/Other Pt SpecificInfo: Prescription(s) given Scripts Ciprofloxacin (Cipro)500 Mg [id number] Mg PO BID 10 Days Ref 0 Prov:Alek Ledesma MD 10/17/16 Disposition: 01 DISCHARGE HOME Condition: Stable Alek Ledesma MD October 17, 2016 20:50
[2016-10-17] MEDS ORDERED: CIPROFLOXACIN 500 MG TAB PO ONE (21:00)
[2016-10-17 22:41] LABS: CHLAMYDIA PCR NOT DETECTED (NOT DETECT); NEISSERIA PCR NOT DETECTED (NOT DETECT)
== END 2016-10-17 21:06 | disposition home or self-care (01) ==
LOC: PHED 16:01
DX: N30.90 Cystitis, unspecified without hematuria (principal); R10.31 Right lower quadrant pain; R82.99 Other abnormal findings in urine; J45.909 Unspecified asthma, uncomplicated
CPT/HCPCS: 74177; 76856; 80053; 81001; 83690; 84703; 85025; 87086; 87210; 87491; 87591; 93975; 96361; 96374; 96375; 99284; J2270; J2405; J7030; Q9967

== ENCOUNTER 2016-12-26 23:34 | Emergency (ER) | payer MEDICAID ==
[~2016-12-26 23:34] MED LIST changes: +CIPR-9 PO; -PROM25TA5 PO; -ZOFR4TAB3 SL
[2016-12-26 23:36] VITALS: BP 126/60; PULSE 84; RESP 20; TEMP 97.9; O2SAT 97
== END 2016-12-27 00:18 | disposition left against medical advice (07) ==
LOC: NED 23:34
DX: R10.9 Unspecified abdominal pain (principal)
CPT/HCPCS: 99281

== ENCOUNTER 2017-01-25 23:08 | Emergency (ER) | payer MEDICAID, OTHER ==
[~2017-01-25] VITALS: Ht 165.1 cm; Wt 56.0 kg
[2017-01-25 23:21] VITALS: BP 107/68; PULSE 87; RESP 20; TEMP 98.3; O2SAT 100
--- NOTE | 2017-01-25 23:45 | PD ---
HPI Chief Complaint: Related Problem Time Seen by Provider: 23:41 Travel History International Travel<30 days: No Contact w/Intl Traveler<30days: No History of Present Illness HPI 21-year-old female, 5 para 2 (3 prior miscarries) complains of 2 hours abdominal pain evidently gradual in onset constant moderately severe associated with vaginal discharge white in color without odor. Similar discharge was associated with a prior . She's had no vaginal bleeding. She's had no vomiting. No fever. Urination has been normal. Patient reports ultrasound has been performed started this however is unclear of the results stating "It had a heart beat." PFSH Past Medical History Asthma: Yes Diminished Hearing: No Respiratory: Yes (CHRONIC BREATHING ISSUES) Immunizations Current: Yes : 3 Para: 1 Miscarriage: 1 : 1 Past Surgical History Oral Surgery: Yes (TOOTH EXTRACTION) Social History Alcohol Use: Yes ("COUPLE [place]ERS", OCCASIONALLY) Tobacco Use: No Substance Use: No Allergies-Medications (Allergen,Severity, Reaction): Coded Allergies: Fish Containing Products (Verified Allergy, Severe, PT DENIES ALLERGY, ) penicillin G (Verified Allergy, Severe, hives, 01/25/17) Sulfa (Sulfonamide Antibiotics) (Verified Allergy, Intermediate, ITCHING, 01/25/17) papa (Verified Allergy, Intermediate, rash and hives, 01/25/17) sulfamethoxazole (Verified Adverse Reaction, Intermediate, HIVES, 01/25/17) trimethoprim (Verified Adverse Reaction, Intermediate, HIVES, 01/25/17) Reported Meds & Prescriptions Reported Meds & Active Scripts Active Cipro (Ciprofloxacin HCl) 500 Mg Tab 500 Mg PO BID 10 Days Review of Systems Except as stated in HPI: all other systems reviewed are Neg Physical Exam Narrative GENERAL: 21-year-old female well-nourished well-developed no acute distress SKIN: Warm and dry. HEAD: Atraumatic. Normocephalic. EYES: Pupils equal and round. No scleral icterus. No injection or drainage. ENT: No nasal bleeding or discharge. Mucous membranes pink and moist. NECK: Trachea midline. No JVD. CARDIOVASCULAR: Regular rate and rhythm. RESPIRATORY: No accessory muscle use. Clear to auscultation. Breath sounds equal bilaterally. GASTROINTESTINAL: Abdomen soft, non-tender, nondistended. Hepatic and splenic margins not palpable. MUSCULOSKELETAL: Extremities without clubbing, cyanosis, or edema. No obvious deformities. NEUROLOGICAL: Awake and alert. No obvious cranial nerve deficits. Motor grossly within normal limits. Five out of 5 muscle strength in the arms and legs. Normal speech. PSYCHIATRIC: Appropriate mood and affect; insight and judgment normal. Data Data Last Documented VS Vital Signs Date Time Temp Pulse Resp B/P Pulse Ox O2 Delivery O2 Flow Rate FiO2 01/25/17 23:21 98.3 87 20 107/68 100 Vital signs reviewed Orders Beta Hcg (Quant/Titer) (01/25/17 23:41) Complete Blood Count With Diff (01/25/17 23:41) Comprehensive Metabolic Panel (01/25/17 23:41) Gc And Chlamydia Pcr (01/25/17 23:41) Us Pelvis (Ques Preg/Ectopic) (01/25/17 ) Wet Prep Profile (01/25/17 23:41) Urinalysis - C+S If Indicated (01/25/17 23:41) Iv Access Insert/Monitor (01/25/17 23:41) Ed Urine Pregnancytest Poc (01/25/17 23:41) Complete Rh (01/25/17 23:45) MDM Medical Decision Making Medical Screen Exam Complete: Yes Emergency Medical Condition: Yes Medical Record Reviewed: Yes Differential Diagnosis IUP, UTI, ectopic , ov torsion, appendicitis, TOA, cervicitis, BV, Trichomoniasis, ov cyst, hernia, mittelschmerz, pain from menstruation Narrative Course Initial workup started. Case to be followed up by Dr. oStelo. Mike Palma MD Jan 25, 2017 23:45
[2017-01-26] MEDS ORDERED: Prenatal Vitamin PO (00:03)
[2017-01-26 00:16] LABS: AUTOMATED NEUTROPHIL # 6.8 TH/MM3 (1.8-7.7); BASOPHIL # 0.1 TH/MM3 (0-0.2); BASOPHIL % 0.5 % (0.0-2.0); EOSINOPHIL # 0.3 TH/MM3 (0-0.4); EOSINOPHIL % 2.3 % (0.0-4.0); HEMATOCRIT 39.4 % (35.0-46.0); LYMPH % 26.3 % (9.0-44.0); LYMPHOCYTE # 2.9 TH/MM3 (1.0-4.8); MEAN CELL VOLUME 84.1 FL (80.0-100.0); MEAN CORPUSCULAR HEMOGLOBIN 27.3 PG (27.0-34.0); MEAN CORPUSCULAR HGB CONC 32.5 % (32.0-36.0); MONO % 7.6 % (0.0-8.0); NEUT % 63.3 % (16.0-70.0); PLATELET COUNT 244 TH/MM3 (150-450); RED BLOOD COUNT 4.69 MIL/MM3 (4.00-5.30); RED CELL DISTRIBUTION WIDTH 14.4 % (11.6-17.2); WHITE BLOOD COUNT 10.9 TH/MM3 (4.0-11.0)
[2017-01-26 00:17] LABS: HEMO FLAGS DIFF FINAL
--- NOTE | 2017-01-26 00:22 | PD ---
Physical Exam Date Seen by Provider: Jan 26, 2017 Time Seen by Provider: 00:20 Narrative Accepted in transfer of care from Dr. Palma GENERAL: Well-developed well-nourished female in no respiratory distress appears to be and discomfort SKIN: Warm and dry. CARDIOVASCULAR: Regular rate and rhythm without murmurs, gallops, or rubs. RESPIRATORY: Breath sounds equal bilaterally. No accessory muscle use. GASTROINTESTINAL: Abdomen soft, tender to palpation lower abdomen, nondistended. Pelvic exam: Normal external exam no redness induration or lesions no bleeding; speculum exam clear white mucous without blood, clots, tissue and cervical os is closed; bimanual exam tenderness to palpation in the left leg maxillary region with mild uterine enlargement no cervical motion tenderness. Data Data Last Documented VS Vital Signs Date Time Temp Pulse Resp B/P Pulse Ox O2 Delivery O2 Flow Rate FiO2 01/26/17 01:09 98.7 75 17 99/59 98 Room Air Orders Beta Hcg (Quant/Titer) (01/25/17 23:41) Complete Blood Count With Diff (01/25/17 23:41) Comprehensive Metabolic Panel (01/25/17 23:41) Gc And Chlamydia Pcr (01/25/17 23:41) Us Pelvis (Ques Preg/Ectopic) (01/25/17 ) Wet Prep Profile (01/25/17 23:41) Urinalysis - C+S If Indicated (01/25/17 23:41) Iv Access Insert/Monitor (01/25/17 23:41) Ed Urine Pregnancytest Poc (01/25/17 23:41) Complete Rh (01/25/17 23:45) Urine Culture (01/26/17 00:00) Acetaminophen (Tylenol) (01/26/17 02:30) Nitrofurantoin Monohyd Macrocr (Macrobid (01/26/17 02:30) Labs Laboratory Tests Test 01/25/17 01/26/17 01/26/17 23:50 00:00 00:20 Blood Type O POSITIVE Rho(D) Type POSITIVE White Blood Count 10.9 TH/MM3 Red Blood Count 4.69 MIL/MM3 Hemoglobin 12.8 GM/DL Hematocrit 39.4 % Mean Corpuscular Volume 84.1 FL Mean Corpuscular Hemoglobin 27.3 PG Mean Corpuscular Hemoglobin 32.5 % Concent Red Cell Distribution Width 14.4 % Platelet Count 244 TH/MM3 Mean Platelet Volume 8.7 FL Neutrophils (%) (Auto) 63.3 % Lymphocytes (%) (Auto) 26.3 % Monocytes (%) (Auto) 7.6 % Eosinophils (%) (Auto) 2.3 % Basophils (%) (Auto) 0.5 % Neutrophils # (Auto) 6.8 TH/MM3 Lymphocytes # (Auto) 2.9 TH/MM3 Monocytes # (Auto) 0.8 TH/MM3 Eosinophils # (Auto) 0.3 TH/MM3 Basophils # (Auto) 0.1 TH/MM3 CBC Comment DIFF FINAL Differential Comment Urine Color YELLOW Urine Turbidity CLEAR Urine pH 6.0 Urine Specific [place] 1.022 Urine Protein NEG mg/dL Urine Glucose (UA) NEG mg/dL Urine Ketones NEG mg/dL Urine Occult Blood NEG Urine Nitrite NEG Urine Bilirubin NEG Urine Leukocyte Esterase NEG Urine RBC 0-2 /hpf Urine WBC 0-2 /hpf Urine Squamous Epithelial 6-8 /hpf Cells Urine Bacteria MOD /hpf Microscopic Urinalysis Comment CULTURE INDICATED Sodium Level 136 MEQ/L Potassium Level 3.3 MEQ/L Chloride Level 104 MEQ/L Carbon Dioxide Level 24.9 MEQ/L Anion Gap 7 MEQ/L Blood Urea Nitrogen 10 MG/DL Creatinine 0.68 MG/DL Estimat Glomerular Filtration 109 ML/MIN Rate Random Glucose 86 MG/DL Calcium Level 8.7 MG/DL Total Bilirubin 0.6 MG/DL Aspartate Amino Transf 15 U/L (AST/SGOT) Alanine Aminotransferase 19 U/L (ALT/SGPT) Alkaline Phosphatase 75 U/L Total Protein 7.8 GM/DL Albumin 4.3 GM/DL Human Chorionic Gonadotropin, [address]32 MIU/ML Quant Clue Cells (Wet Prep) NONE SEEN Vaginal Trichomonas (Wet Prep) NONE SEEN Vaginal Yeast (Wet Prep) NONE SEEN MDM Medical Record Reviewed: Yes Supervised Visit with CK: No Interpretation(s) pelvic US: CONCLUSION: Viable intrauterine with an estimated gestational age of 6 weeks and 5 days. Zeyad Berg MD on January 26, 2017 at 2:10 Board Certified Radiologist. This report was verified electronically. CBC & BMP Diagram 01/26/17 00:00 Vital Signs Date Time Temp Pulse Resp B/P Pulse Ox O2 Delivery O2 Flow Rate FiO2 01/26/17 01:09 98.7 75 17 99/59 98 Room Air 01/25/17 23:21 98.3 87 20 107/68 100 Differential Diagnosis Accepted in transfer of care from Dr. Palma; please refer to his dictation Narrative Course Accepted in transfer of care from Dr. Palma; follow-up of pending labs ultrasound and we'll perform pelvic Labs resulted and found to have abnormal urinalysis Quantitative hCG 50,925 Patient is oh positive Patient is aware of abnormal urinalysis resting comfortably at this time. Patient is encouraged to complete course of antibiotic and received first dose of antibiotic in the emergency department. Patient informed she can use Tylenol as needed for pain according to package directions. Patient is encouraged to follow-up with her LOGISTICS SPECIALIST. Patient is encouraged to return the emergency department for any concerns. Diagnosis Primary Impression: Qualified Code: Z3A.01 - Less than 8 weeks gestation of Additional Impression: UTI (urinary tract infection) Qualified Code: N39.0 - Urinary tract infection without hematuria, site unspecified Referrals: Pricing Strategist 2 days Patient Instructions: General Instructions Departure Forms: Tests/Procedures, Work Release Special Instructions: no work x 2 days Additional Instruction: Increase fluid hydration Complete course of antibiotic as prescribed Take Tylenol as needed for pain Follow-up with your primary care LOGISTICS SPECIALIST call office on Friday Return to the emergency department for any concerns or change in condition Bedrest and pelvic rest times one day No work 2 days Med/Other Pt SpecificInfo: Prescription(s) given Scripts Nitrofurantoin Monohydrate Macrocrystals (Macrobid)100 Mg [id number] Mg PO BID 10 Days Ref 0 Prov:Rocio Sotelo MD 01/26/17 Disposition: 01 DISCHARGE HOME Condition: Stable Rocio Sotelo MD Jan 26, 2017 00:22
[2017-01-26 00:29] LABS: CHLORIDE 104 MEQ/L (98-107); POTASSIUM 3.3 MEQ/L (3.5-5.1); SODIUM (NA) 136 MEQ/L (136-145)
[2017-01-26 00:33] LABS: ANION GAP 7 MEQ/L (5-15); BICARBONATE 24.9 MEQ/L (21.0-32.0); BLOOD UREA NITROGEN 10 MG/DL (7-18)
[2017-01-26 00:36] LABS: ALT (GPT) 19 U/L (10-53); AST (GOT) 15 U/L (15-37); BLOOD, URINE NEG (NEG); GLOMERULAR FILTRATION RATE 109 ML/MIN (>89); GLUCOSE,URINE NEG (NEG); KETONE, URINE NEG (NEG); NITRITE,URINE NEG (NEG)
[2017-01-26 00:37] LABS: TOTAL BILIRUBIN ADULT 0.6 MG/DL (0.2-1.0)
[2017-01-26 00:38] LABS: ALKALINE PHOSPHATASE 75 U/L (45-117)
[2017-01-26 00:42] LABS: URINE COLOR YELLOW (YELLW/STRAW)
[2017-01-26 00:43] LABS: BACTERIA, URINE MOD /hpf; COMMENT (UR) CULTURE INDICATED; CULTURE IF INDICATED CULTURE INDICATED; RBC, URINE 0-2 /hpf (0-3); WBC, URINE 0-2 /hpf (0-5)
[2017-01-26 00:53] LABS: BETA HCG QUANT 50925 MIU/ML (0-5)
[2017-01-26 01:09] VITALS: BP 99/59; PULSE 75; RESP 17; TEMP 98.7; O2SAT 98
[2017-01-26 02:05] VITALS: BP 103/62; PULSE 72; RESP 16; O2SAT 98
--- NOTE | 2017-01-26 02:13 | RADRPT ---
EXAM DATE/TIME: 01/26/2017 06:44 [facility] COMPARISON: No previous studies available for comparison. INDICATIONS : Pelvic pain with . LAB(S): Beta-hC MEDICAL HISTORY : . Endometriosis. SURGICAL HISTORY : None. ENCOUNTER: Initial ACUITY: 1 day PAIN SCORE: 5/10 LOCATION: Bilateral pelvis MEASUREMENTS: UTERUS: 9.9 x 6.6 x 4.7 cm ENDOMETRIAL STRIPE: 8 mm RIGHT OVARY: 2.4 x 2.9 x 2.3 cm LEFT OVARY: 2.8 x 2.9 x 1.7 cm FREE FLUID: No CROWN RUMP LENGTH: 0.77 cm = 6 WKS 5 DAYS FHR: 123 BPM FINDINGS: UTERUS: The myometrium has homogeneous echotexture without mass. Gestational sac is identified measuring 2.6 x 2.0 x 0.9 cm corresponding to a gestational age of 6 weeks and 5 days. A pole is identified measuring 0.77 cm again correspond to a gestational age of 6 weeks and 5 days. Yolk sac is identified with heart motions at 123 beats per minute RIGHT OVARY: Ovary contains no mass or significant cystic lesion. LEFT OVARY: Ovary contains no mass or significant cystic lesion. MISCELLANEOUS: No free fluid. CONCLUSION: Viable intrauterine with an estimated gestational age of 6 weeks and 5 days. Zeyad Berg MD on January 26, 2017 at 2:10 Board Certified Radiologist. This report was verified electronically.
[2017-01-26] MEDS ORDERED: ACETAMINOPHEN 325 MG TAB PO ONE (02:30)
[2017-01-26] MEDS ORDERED: NITROFURANTOIN MONOHYD MACROCR 100 MG CAP PO ONE (02:30)
[2017-01-26] MEDS ORDERED: MACR100C2 PO (02:48)
[2017-01-26 12:12] LABS: CHLAMYDIA PCR NOT DETECTED (NOT DETECT); NEISSERIA PCR NOT DETECTED (NOT DETECT)
== END 2017-01-26 03:15 | disposition home or self-care (01) ==
LOC: PHED 23:08
DX: O23.41 Unspecified infection of urinary tract in pregnancy, first trimester (principal); B96.89 Other specified bacterial agents as the cause of diseases classified elsewhere; Z3A.01 Less than 8 weeks gestation of pregnancy
CPT/HCPCS: 76700; 80053; 81001; 84702; 84703; 85025; 86901; 87086; 87210; 87491; 87591; 99285

== ENCOUNTER 2017-07-31 17:37 | Emergency (ER) | payer SELFPAY ==
[~2017-07-31] VITALS: Ht 165.1 cm; Wt 50.7 kg
[~2017-07-31 17:37] MED LIST changes: -CIPR-9 PO; +MACR100C2 PO; +Prenatal Vitamin PO
[2017-07-31 17:42] VITALS: BP 109/57; PULSE 78; RESP 16; TEMP 98.6; O2SAT 100
[2017-07-31] MEDS ORDERED: SODIUM CHLOR 0.9% 1000 ML INJ 1,000 ML IV SCH (18:03)
--- NOTE | 2017-07-31 18:09 | PD ---
HPI Chief Complaint: Abdominal Pain Time Seen by Provider: 18:03 Travel History International Travel<30 days: No Contact w/Intl Traveler<30days: No Traveled to known affect area: No History of Present Illness HPI Patient comes in complaining of right flank pain and lower suprapubic area pain has been ongoing for the past day or so. She has a history of endometriosis in the lower abdominal pain is usually more common to her but this right flank area pain is not her usual. Patient states the pain is sharp, 9 out of 10, right flank to lower abdominal radiating, associated with nausea but without any vomiting or diarrhea. Patient denies any alleviating or aggravating factors. Patient denies any associated factors such as fever headache photophobia, rash, nausea, vomiting, diarrhea, neck pain OR Chest pain Patient states that she has allergies to penicillin, sulfa, mangling coconut Patient denies any past surgical history Patient denies any past medical history. PFSH Past Medical History Asthma: Yes Diminished Hearing: No Reproductive: Yes (Endometriosis) Respiratory: Yes Immunizations Current: Yes Tetanus Vaccination: > 5 Years Influenza Vaccination: No ?: Unknown LMP: 07/16/2017 : 5 Para: 1 Miscarriage: 1 : 1 Past Surgical History Oral Surgery: Yes (TOOTH EXTRACTION) Social History Alcohol Use: No Tobacco Use: No Substance Use: No Allergies-Medications (Allergen,Severity, Reaction): Coded Allergies: Fish Containing Products (Verified Allergy, Severe, PT DENIES ALLERGY, ) penicillin G (Verified Allergy, Severe, hives, 07/31/17) Sulfa (Sulfonamide Antibiotics) (Verified Allergy, Intermediate, ITCHING, 07/31/17) papa (Verified Allergy, Intermediate, rash and hives, 07/31/17) sulfamethoxazole (Verified Adverse Reaction, Intermediate, HIVES, 07/31/17) trimethoprim (Verified Adverse Reaction, Intermediate, HIVES, 07/31/17) Reported Meds & Prescriptions Reported Meds & Active Scripts Active No Active Prescriptions or Reported Medications Review of Systems General / Constitutional: No: Fever Eyes: No: Visual changes HENT: No: Headaches Cardiovascular: No: Chest Pain or Discomfort Respiratory: No: Shortness of Breath Gastrointestinal: No: Abdominal Pain Genitourinary: Positive: Flank Pain, Other (Suprapubic) Musculoskeletal: No: Pain Skin: No Rash Neurologic: No: Weakness Psychiatric: No: Depression Endocrine: No: Polydipsia Hematologic/Lymphatic: No: Easy Bruising Physical Exam Narrative GENERAL: SKIN: Warm and dry. HEAD: Atraumatic. Normocephalic. EYES: Pupils equal and round. No scleral icterus. No injection or drainage. ENT: No nasal bleeding or discharge. Mucous membranes pink and moist. NECK: Trachea midline. No JVD. CARDIOVASCULAR: Regular rate and rhythm. RESPIRATORY: No accessory muscle use. Clear to auscultation. Breath sounds equal bilaterally. GASTROINTESTINAL: Abdomen soft, suprapubic and right lower quadrant area is tender to palpation, nondistended. Patient also has right CVA tenderness MUSCULOSKELETAL: Extremities without clubbing, cyanosis, or edema. No obvious deformities. NEUROLOGICAL: Awake and alert. No obvious cranial nerve deficits. Motor grossly within normal limits. Five out of 5 muscle strength in the arms and legs. Normal speech. PSYCHIATRIC: Appropriate mood and affect; insight and judgment normal. Data Data Last Documented VS Vital Signs Date Time Temp Pulse Resp B/P (MAP) Pulse Ox O2 Delivery O2 Flow Rate FiO2 07/31/17 17:42 98.6 78 16 109/57 (74) 100 Orders Orders Complete Blood Count With Diff (07/31/17 18:03) Comprehensive Metabolic Panel (07/31/17 18:03) Lipase (07/31/17 18:) Urinalysis - C+S If Indicated (07/31/17 18:03) Ct Abd/Pel W/O Iv Contrast (07/31/17 18:03) Iv Access Insert/Monitor (07/31/17 18:03) Ecg Monitoring (07/31/17 18:) Oximetry (07/31/17 18:03) NPO (07/31/17 18:03) Morphine Inj (Morphine Inj) (07/31/17 18:15) Ondansetron Inj (Zofran Inj) (07/31/17 18:15) Sodium Chlor 0.9% 1000 Ml Inj (Ns 1000 M (07/31/17 18:03) Sodium Chloride 0.9% Flush (Ns Flush) (07/31/17 18:15) Ketorolac Inj (Toradol Inj) (07/31/17 18:15) Ed Urine Pregnancytest Poc (2/22/18 18:03) MDM Medical Decision Making Medical Screen Exam Complete: Yes Emergency Medical Condition: Yes Medical Record Reviewed: Yes Differential Diagnosis Endometriosis versus appendicitis versus pyelonephritis versus kidney stones versus related Narrative Course Patient will be signed out pending labs and imaging Diagnosis Primary Impression: Flank pain Scripts No Active Prescriptions or Reported Meds Braden Matthews MD Jul 31, 2017 18:09
[2017-07-31] MEDS ORDERED: KETOROLAC TROMETHAMINE 30 MG/ML (IVP) VIAL IVP ONE (18:15)
[2017-07-31] MEDS ORDERED: SODIUM CHLORIDE 0.9% FLUSH 10 ML FLUSH IV FLUSH PRN (18:15)
[2017-07-31] MEDS ORDERED: MORPHINE SULFATE 4 MG/ML INJ IV PUSH ONE (18:15)
[2017-07-31] MEDS ORDERED: ONDANSETRON HCL 4 MG/2 ML VIAL IVP ONE (18:15)
[2017-07-31 18:18] VITALS: RESP 16; O2SAT 100
[2017-07-31 18:27] LABS: AUTOMATED NEUTROPHIL # 4.2 TH/MM3 (1.8-7.7); BASOPHIL # 0.1 TH/MM3 (0-0.2); BASOPHIL % 0.6 % (0.0-2.0); EOSINOPHIL # 0.4 TH/MM3 (0-0.4); EOSINOPHIL % 4.2 % (0.0-4.0); HEMOGLOBIN 13.2 GM/DL (11.6-15.3); LYMPH % 35.8 % (9.0-44.0); LYMPHOCYTE # 3.1 TH/MM3 (1.0-4.8); MEAN CELL VOLUME 82.2 FL (80.0-100.0); MEAN CORPUSCULAR HEMOGLOBIN 27.1 PG (27.0-34.0); MEAN CORPUSCULAR HGB CONC 32.9 % (32.0-36.0); MEAN PLATELET VOLUME 8.1 FL (7.0-11.0); MONO % 7.7 % (0.0-8.0); MONOCYTE # 0.7 TH/MM3 (0-0.9); NEUT % 51.7 % (16.0-70.0); PLATELET COUNT 274 TH/MM3 (150-450); RED BLOOD COUNT 4.86 MIL/MM3 (4.00-5.30); RED CELL DISTRIBUTION WIDTH 13.8 % (11.6-17.2); WHITE BLOOD COUNT 8.5 TH/MM3 (4.0-11.0)
[2017-07-31 18:30] LABS: BILIRUBIN, URINE NEG (NEG); BLOOD, URINE NEG (NEG); GLUCOSE,URINE NEG (NEG); KETONE, URINE NEG (NEG); NITRITE,URINE NEG (NEG); PH, URINE 8.5 (5.0-8.5); URINE LEUKOCYTE ESTERASE LARGE (NEG)
[2017-07-31 18:34] LABS: CHLORIDE 106 MEQ/L (98-107); SODIUM (NA) 138 MEQ/L (136-145)
[2017-07-31 18:37] LABS: CALCIUM 8.9 MG/DL (8.5-10.1)
[2017-07-31 18:38] LABS: ALBUMIN 4.5 GM/DL (3.4-5.0); BICARBONATE 26.3 MEQ/L (21.0-32.0); BLOOD UREA NITROGEN 10 MG/DL (7-18); GLUCOSE,RANDOM 86 MG/DL (74-106)
[2017-07-31 18:40] LABS: URINE COLOR STRAW (YELLW/STRAW)
[2017-07-31 18:40] LABS: ALT (GPT) 20 U/L (10-53); AST (GOT) 24 U/L (15-37)
[2017-07-31 18:41] LABS: BACTERIA, URINE MOD /hpf; SQUAMOUS EPITHELIAL CELL URINE > 8 /hpf (0-5); WBC, URINE 15-19 /hpf (0-5); WHITE BLOOD CELL CLUMPS FEW
[2017-07-31 18:41] LABS: GLOMERULAR FILTRATION RATE 78 ML/MIN (>89)
[2017-07-31 18:42] LABS: TOTAL BILIRUBIN ADULT 0.9 MG/DL (0.2-1.0); TOTAL PROTEIN 8.5 GM/DL (6.4-8.2)
[2017-07-31 18:43] LABS: ALKALINE PHOSPHATASE 97 U/L (45-117)
[2017-07-31] MEDS ORDERED: LEVOFLOXACIN 750 MG PREMIX INJ 150 ML IV ONE (19:00)
[2017-07-31 19:02] VITALS: BP 107/70; PULSE 65; RESP 16; O2SAT 100
--- NOTE | 2017-07-31 19:48 | RADRPT ---
EXAM DATE/TIME: 07/31/2017 19:06 [facility] COMPARISON: CT ABDOMEN & PELVIS W CONTRAST, October 17, 2016, 17:19. INDICATIONS : Right flank pain. ORAL CONTRAST: No oral contrast ingested. RADIATION DOSE: 4.87 CTDIvol (mGy) MEDICAL HISTORY : Asthma. Endometriosis. SURGICAL HISTORY : None. ENCOUNTER: Initial ACUITY: 1 day PAIN SCALE: 7/10 LOCATION: Right flank TECHNIQUE: Volumetric scanning of the abdomen and pelvis was performed. Using automated exposure control and ad justment of the mA and/or kV according to patient size, radiation dose was kept as low as reasonably achievable to obtain optimal diagnostic quality images. DICOM format image data is available electro nically for review and comparison. FINDINGS: LOWER LUNGS: The visualized lower lungs are clear. LIVER: Homogeneous density without lesion. There is no dilation of the biliary tree. No calcified gallston es. SPLEEN: Normal size without lesion. PANCREAS: Within normal limits. KIDNEYS: Punctate 2 mm calcified calyceal calculus in the mid right kidney. No significant hydronephrosis. The re is also a punctate 2 mm calcification in the anterior pelvis which appears more anterior than expe cted for the distal course of the ureter. However, the ureter is not well-demonstrated in this region . The left kidney is unremarkable. ADRENAL GLANDS: Within normal limits. VASCULAR: There is no aortic aneurysm. BOWEL/MESENTERY: The stomach, small bowel, and colon demonstrate no acute abnormality. There is no free intraperitone al air or fluid. Appendix is visualized and normal in appearance. . ABDOMINAL WALL: Within normal limits. RETROPERITONEUM: There is no lymphadenopathy. BLADDER: No wall thickening or mass. REPRODUCTIVE: Within normal limits. INGUINAL: There is no lymphadenopathy or hernia. MUSCULOSKELETAL: Within normal limits for patient age. CONCLUSION: 1. 2 mm calyceal calculus in the mid right kidney. Additional 2 mm calcification in the anterior pelv is appears more anterior than expected for the distal course of the ureter although the ureter is not demonstrated in this region. There is no significant obstructive uropathy. 2. Normal-appearing appendix. 1. Tanner Martinez MD on July 31, 2017 at 19:42 Board Certified Radiologist. This report was verified electronically.
--- NOTE | 2017-07-31 19:56 | PD ---
Physical Exam Time Seen by Provider: 19:[address] Matthews left this patient with me to check the results of the CT and blood work. He felt the patient had a pyelonephritis and could likely be discharged if the CT was all right. Data Data Last Documented VS Vital Signs Date Time Temp Pulse Resp B/P (MAP) Pulse Ox O2 Delivery O2 Flow Rate FiO2 07/31/17 19:02 65 16 107/70 (82) 100 Room Air 07/31/17 17:42 98.6 Orders Orders Complete Blood Count With Diff (07/31/17 18:03) Comprehensive Metabolic Panel (07/31/17 18:03) Lipase (07/31/17 18:03) Urinalysis - C+S If Indicated (07/31/17 18:03) Ct Abd/Pel W/O Iv Contrast (07/31/17 18:03) Iv Access Insert/Monitor (07/31/17 18:03) Ecg Monitoring (07/31/17 18:03) Oximetry (07/31/17 18:03) NPO (07/31/17 18:03) Morphine Inj (Morphine Inj) (07/31/17 18:15) Ondansetron Inj (Zofran Inj) (07/31/17 18:15) Sodium Chlor 0.9% 1000 Ml Inj (Ns 1000 M (07/31/17 18:03) Sodium Chloride 0.9% Flush (Ns Flush) (07/31/17 18:15) Ketorolac Inj (Toradol Inj) (07/31/17 18:15) Ed Urine Pregnancytest Poc (07/31/17 18:03) Urine Culture (07/31/17 18:15) Levofloxacin 750 Mg Premix Inj (Levaquin (07/31/17 19:00) Labs Laboratory Tests Test 07/31/17 18:15 07/31/17 18:18 Urine Color STRAW Urine Turbidity CLOUDY Urine pH 8.5 Urine Specific [place] 1.010 Urine Protein NEG mg/dL Urine Glucose (UA) NEG mg/dL Urine Ketones NEG mg/dL Urine Occult Blood NEG Urine Nitrite NEG Urine Bilirubin NEG Urine Leukocyte Esterase LARGE Urine WBC 15-19 /hpf Urine WBC Clumps FEW Urine Squamous Epithelial Cells > 8 /hpf Urine Bacteria MOD /hpf Microscopic Urinalysis Comment CULTURE INDICATED White Blood Count 8.5 TH/MM3 Red Blood Count 4.86 MIL/MM3 Hemoglobin 13.2 GM/DL Hematocrit 40.0 % Mean Corpuscular Volume 82.2 FL Mean Corpuscular Hemoglobin 27.1 PG Mean Corpuscular Hemoglobin Concent 32.9 % Red Cell Distribution Width 13.8 % Platelet Count 274 TH/MM3 Mean Platelet Volume 8.1 FL Neutrophils (%) (Auto) 51.7 % Lymphocytes (%) (Auto) 35.8 % Monocytes (%) (Auto) 7.7 % Eosinophils (%) (Auto) 4.2 % Basophils (%) (Auto) 0.6 % Neutrophils # (Auto) 4.2 TH/MM3 Lymphocytes # (Auto) 3.1 TH/MM3 Monocytes # (Auto) 0.7 TH/MM3 Eosinophils # (Auto) 0.4 TH/MM3 Basophils # (Auto) 0.1 TH/MM3 CBC Comment DIFF FINAL Differential Comment Blood Urea Nitrogen 10 MG/DL Creatinine 0.90 MG/DL Random Glucose 86 MG/DL Total Protein 8.5 GM/DL Albumin 4.5 GM/DL Calcium Level 8.9 MG/DL Alkaline Phosphatase 97 U/L Aspartate Amino Transf (AST/SGOT) 24 U/L Alanine Aminotransferase (ALT/SGPT) 20 U/L Total Bilirubin 0.9 MG/DL Sodium Level 138 MEQ/L Potassium Level 3.6 MEQ/L Chloride Level 106 MEQ/L Carbon Dioxide Level 26.3 MEQ/L Anion Gap 6 MEQ/L Estimat Glomerular Filtration Rate 78 ML/MIN Lipase 192 U/L [facility] Medical Record Reviewed: Yes Supervised Visit with CK: No Interpretation(s) The CBC is normal. The complete metabolic profile shows a GFR of 78, total protein of 8.5 but is otherwise unremarkable. The lipase is normal. The urinalysis shows cloudy turbidity, large leukocyte esterase with 15-19 white cells and moderate bacteria and culture is indicated. The CT abdomen pelvis shows a 2 mm calyceal calculus in the mid right kidney and additional 2 mm calcification in the anterior pelvis which appears more anterior than the ureter. There is no obstructive uropathy. The appendix appears normal. The urine test was negative. Differential Diagnosis Pyelonephritis, cystitis, anemia, urinary stone, electrolyte disorder, Narrative Course The patient appears to have a pyelonephritis. She states there is no possibility of . The patient cannot afford to buy antibiotics, she has no insurance. She'll be given Cipro, Compazine and Percocet. She is told not to drink alcohol or drive on the Compazine and Percocet. Diagnosis Primary Impression: Flank pain Additional Instruction: Increase your liquid intake. It is necessary to establish a good urine flow through your kidneys when you have a urinary infection. The antibiotic is one tablet twice daily for 10 days. Do not drink alcohol or drive on the Compazine or Percocet. Follow-up with a primary care physician as soon as possible. Med/Other Pt SpecificInfo: Prescription(s) given Scripts Nitrofurantoin Monohydrate Macrocrystals (Macrobid) 100 Mg Capsule 100 MG PO BID for Infection for 10 Days, #20 CAP 0 Refills Prov: Alek Ledesma MD 07/31/17 Oxycodone-Acetaminophen (Percocet) 5-325 mg Tab 1-2 TAB PO Q4H Y for PAIN, #28 TAB 0 Refills Prov: Alek Ledesma MD 07/31/17 Prochlorperazine Maleate (Prochlorperazine Maleate) 10 Mg Tab 10 MG PO Q6H Y for NAUSEA OR VOMITING, #28 TAB 0 Refills Prov: Alek Ledesma MD 07/31/17 Disposition: 01 DISCHARGE HOME Condition: Stable Alek Ledesma MD Jul 31, 2017 19:56
[2017-07-31] MEDS ORDERED: NITROFURANTOIN MONOHYD MACROCR 100 MG CAP PO ONE (20:00)
[2017-07-31] MEDS ORDERED: oxyCODONE/ACETAMINOPHEN 7.5 MG/325 MG TAB PO ONE (20:00)
[2017-07-31] MEDS ORDERED: PROC10TA PO (20:11)
[2017-07-31] MEDS ORDERED: MACR100C2 PO (20:11)
[2017-07-31] MEDS ORDERED: PERC5TAB12 PO (20:11)
[2017-07-31 21:10] VITALS: BP 112/73
== END 2017-07-31 21:10 | disposition home or self-care (01) ==
LOC: PHED 17:37
DX: R10.9 Unspecified abdominal pain (principal); N20.0 Calculus of kidney; J45.909 Unspecified asthma, uncomplicated; Z88.0 Allergy status to penicillin; Z88.2 Allergy status to sulfonamides; Z88.8 Allergy status to other drugs, medicaments and biological substances
CPT/HCPCS: 74176; 80053; 81001; 83690; 84703; 85025; 87086; 96361; 96365; 96366; 96375; 99284; J1885; J1956; J2270; J2405; J7030

== ENCOUNTER 2017-09-28 20:12 | Emergency (ER) | payer MEDICAID ==
[~2017-09-28] VITALS: Ht 165.1 cm; Wt 51.5 kg
[~2017-09-28 20:12] MED LIST changes: +PERC5TAB12 PO; +PROC10TA PO; -Prenatal Vitamin PO
[2017-09-28 20:15] VITALS: BP 113/56; PULSE 90; RESP 18; TEMP 97.8; O2SAT 98
[2017-09-28] MEDS ORDERED: SODIUM CHLOR 0.9% 1000 ML INJ 1,000 ML IV SCH (20:43)
[2017-09-28] MEDS ORDERED: KETOROLAC TROMETHAMINE 30 MG/ML (IVP) VIAL IVP ONE (20:45)
[2017-09-28] MEDS ORDERED: SODIUM CHLORIDE 0.9% FLUSH 10 ML FLUSH IV FLUSH PRN (20:45)
[2017-09-28] MEDS ORDERED: ONDANSETRON HCL 4 MG/2 ML VIAL IVP ONE (20:45)
--- NOTE | 2017-09-28 20:46 | PD ---
HPI Chief Complaint: Flank/Kidney Pain Time Seen by Provider: 20:19 Travel History International Travel<30 days: No Contact w/Intl Traveler<30days: No Traveled to known affect area: No History of Present Illness HPI 22-year-old female patient with history of kidney stones, presents to the ER today with 1 day history of right-sided waxing and waning flank pain, nausea, states the pain is currently an 8 out of 10. She does not know of any exacerbating or relieving factors. She denies any urinary symptoms. She states it feels like when she had her kidney stones last time. Modifying Factors: None Associated Signs & Symptoms: Right flank pain Risk Factors: History of kidney stones PFSH Past Medical History Asthma: Yes Diminished Hearing: No Kidney Stones: Yes Reproductive: Yes (Endometriosis) Respiratory: Yes Immunizations Current: Yes Tetanus Vaccination: > 5 Years Influenza Vaccination: No ?: Not LMP: Started today : 5 Para: 1 Miscarriage: 2 : 2 Past Surgical History Surgical History: No Previous Surgery Oral Surgery: Yes (TOOTH EXTRACTION) Social History Alcohol Use: Yes (RARELY) Tobacco Use: No Substance Use: No Allergies-Medications (Allergen,Severity, Reaction): Coded Allergies: Fish Containing Products (Verified Allergy, Severe, PT DENIES ALLERGY, ) penicillin G (Verified Allergy, Severe, hives, 09/28/17) Sulfa (Sulfonamide Antibiotics) (Verified Allergy, Intermediate, ITCHING, 09/28/17) papa (Verified Allergy, Intermediate, rash and hives, 09/28/17) sulfamethoxazole (Verified Adverse Reaction, Intermediate, HIVES, 09/28/17) trimethoprim (Verified Adverse Reaction, Intermediate, HIVES, 09/28/17) Reported Meds & Prescriptions Reported Meds & Active Scripts Active Review of Systems Except as stated in HPI: all other systems reviewed are Neg Physical Exam Narrative GENERAL: Well-developed young female patient currently in moderate distress. Awake and oriented 3. SKIN: Focused skin assessment warm/dry. HEAD: Atraumatic. Normocephalic. EYES: Pupils equal and round. No scleral icterus. No injection or drainage. ENT: No nasal bleeding or discharge. Mucous membranes pink and moist. NECK: Trachea midline. No JVD. CARDIOVASCULAR: Regular rate and rhythm. No murmur appreciated. RESPIRATORY: No accessory muscle use. Clear to auscultation. Breath sounds equal bilaterally. GASTROINTESTINAL: Abdomen soft, mild right-sided abdominal tenderness without guarding or rebound, nondistended. Hepatic and splenic margins not palpable. BACK: Right CVA tenderness. No rash. No point tenderness on palpation of the spine. MUSCULOSKELETAL: No obvious deformities. No clubbing. No cyanosis. No edema. NEUROLOGICAL: Awake and alert. No obvious cranial nerve deficits. Motor grossly within normal limits. Normal speech. PSYCHIATRIC: Appropriate mood and affect; insight and judgment normal. Data Data Last Documented VS Vital Signs Date Time Temp Pulse Resp B/P (MAP) Pulse Ox O2 Delivery O2 Flow Rate FiO2 09/28/17 22:31 77 14 97/57 (70) 98 Room Air 09/28/17 20:15 97.8 Orders Orders Complete Blood Count With Diff (09/28/17 20:43) Comprehensive Metabolic Panel (09/28/17 20:43) Lipase (09/28/17 20:43) Urinalysis - C+S If Indicated (09/28/17 20:43) Iv Access Insert/Monitor (09/28/17 20:43) Ecg Monitoring (09/28/17 20:43) Oximetry (09/28/17 20:43) Ondansetron Inj (Zofran Inj) (09/28/17 20:45) Sodium Chlor 0.9% 1000 Ml Inj (Ns 1000 M (09/28/17 20:43) Sodium Chloride 0.9% Flush (Ns Flush) (09/28/17 20:45) Ketorolac Inj (Toradol Inj) (09/28/17 20:45) Ed Urine Pregnancytest Poc (09/28/17 20:43) Us Kidney/Renal/Bladder (09/28/17 20:44) Urine Culture (09/28/17 20:52) Ct Abd/Pel W/O Iv Contrast (09/28/17 21:53) Sodium Chlor 0.9% 1000 Ml Inj (Ns 1000 M (09/28/17 22:45) Ed Discharge Order (09/28/17 22:44) Labs Laboratory Tests Test 09/28/17 20:52 White Blood Count 9.3 TH/MM3 Red Blood Count 4.85 MIL/MM3 Hemoglobin 13.3 GM/DL Hematocrit 39.9 % Mean Corpuscular Volume 82.3 FL Mean Corpuscular Hemoglobin 27.5 PG Mean Corpuscular Hemoglobin Concent 33.4 % Red Cell Distribution Width 14.0 % Platelet Count 291 TH/MM3 Mean Platelet Volume 8.3 FL Neutrophils (%) (Auto) 59.6 % Lymphocytes (%) (Auto) 23.4 % Monocytes (%) (Auto) 10.8 % Eosinophils (%) (Auto) 5.7 % Basophils (%) (Auto) 0.5 % Neutrophils # (Auto) 5.6 TH/MM3 Lymphocytes # (Auto) 2.2 TH/MM3 Monocytes # (Auto) 1.0 TH/MM3 Eosinophils # (Auto) 0.5 TH/MM3 Basophils # (Auto) 0.0 TH/MM3 CBC Comment DIFF FINAL Differential Comment Urine Collection Type CLEAN CATCH Urine Color YELLOW Urine Turbidity SL CLOUDY Urine pH 7.0 Urine Specific [place] 1.010 Urine Protein NEG mg/dL Urine Glucose (UA) NEG mg/dL Urine Ketones NEG mg/dL Urine Occult Blood MOD Urine Nitrite NEG Urine Bilirubin NEG Urine Urobilinogen 0.2 MG/DL Urine Leukocyte Esterase NEG Urine RBC 0-3 /hpf Urine WBC 0-2 /hpf Urine Squamous Epithelial Cells > 8 /hpf Urine Amorphous Sediment MOD Urine Bacteria MANY /hpf Urine Mucus MOD /lpf Microscopic Urinalysis Comment CULTURE INDICATED Blood Urea Nitrogen 9 MG/DL Creatinine 0.82 MG/DL Random Glucose 75 MG/DL Total Protein 8.1 GM/DL Albumin 4.1 GM/DL Calcium Level 9.1 MG/DL Alkaline Phosphatase 81 U/L Aspartate Amino Transf (AST/SGOT) 13 U/L Alanine Aminotransferase (ALT/SGPT) 13 U/L Total Bilirubin 1.3 MG/DL Sodium Level 140 MEQ/L Potassium Level 3.3 MEQ/L Chloride Level 107 MEQ/L Carbon Dioxide Level 28.8 MEQ/L Anion Gap 4 MEQ/L Estimat Glomerular Filtration Rate 87 ML/MIN Lipase 158 U/L [facility] Medical Decision Making Medical Screen Exam Complete: Yes Emergency Medical Condition: Yes Medical Record Reviewed: Yes Interpretation(s) Laboratory Tests Test 09/28/17 20:52 Monocytes (%) (Auto) 10.8 % (0.0-8.0) Eosinophils (%) (Auto) 5.7 % (0.0-4.0) Monocytes # (Auto) 1.0 TH/MM3 (0-0.9) Eosinophils # (Auto) 0.5 TH/MM3 (0-0.4) Urine Occult Blood MOD (NEG) Urine Squamous Epithelial Cells > 8 /hpf (0-5) Urine Bacteria MANY /hpf (NONE) Urine Mucus MOD /lpf (OCC) Aspartate Amino Transf (AST/SGOT) 13 U/L (15-37) Total Bilirubin 1.3 MG/DL (0.2-1.0) Potassium Level 3.3 MEQ/L (3.5-5.1) Anion Gap 4 MEQ/L (5-15) Estimat Glomerular Filtration Rate 87 ML/MIN (>89) Last 24 hours Impressions Abdomen/Pelvis CT [id number]/[id number] Signed Impressions: Service Date/Time: Thursday, September 28, 2017 22:13 - CONCLUSION: 1. No abnormality is identified to explain the right flank pain on this noncontrast low-dose exam. No renal stones are present. 2. Appendix is normal. 3. There is trace free fluid in the pelvis. Bert Godoy MD Renal Ultrasound [id number] Signed Impressions: Service Date/Time: Thursday, September 28, 2017 20:46 - CONCLUSION: Normal ultrasound of the urinary system. No renal stones are visualized. Bert Godoy MD Differential Diagnosis Renal colic versus pyelonephritis versus other acute intra-abdominal processes Narrative Course Lab work was fairly unremarkable. She did have some bacteriuria. An ultrasound was done to try to minimize radiation exposure since symptoms sounded very renal, but it did not show any signs of hydronephrosis. Considering her right-sided abdominal pain CAT scan was ordered to rule out other acute intra-abdominal processes such as appendicitis as well as evaluate for renal colic. CAT scan did not show any kidney stones and her appendix was identified not show any signs of appendicitis. At this point, my plan would be to release her with symptomatic relief or pain and nausea and I will treat her bacteriuria considering that she is having some discomfort with urination. She denies any unusual vaginal discharge. At this point, plan will be to release her with follow-up to primary care doctor. She should return for any worsening in pain, fevers, vomiting, and as needed. The plan was discussed with her and she states understanding. Diagnosis Primary Impression: Abdominal pain Additional Impression: UTI (urinary tract infection) Med/Other Pt SpecificInfo: Prescription(s) given Scripts Ibuprofen (Ibuprofen) 600 Mg Tab 600 MG PO Q6H Y for Pain/Inflammation, #20 TAB 0 Refills Prov: Fatimah Cardoso MD 09/28/17 Ondansetron Odt (Zofran Odt) 4 Mg Tab 4 MG SL Q6HR Y for Nausea/Vomiting, #7 TAB 0 Refills Prov: Fatimah Cardoso MD 09/28/17 Nitrofurantoin Monohydrate Macrocrystals (Macrobid) 100 Mg Cap 100 MG PO BID for Infection for 7 Days, #14 CAP 0 Refills Prov: Fatimah Cardoso MD 09/28/17 Disposition: 01 DISCHARGE HOME Condition: Stable Fatimah Cardoso MD Sep 28, 2017 20:46
[2017-09-28 21:03] VITALS: BP 105/67; PULSE 70; RESP 16; O2SAT 99
[2017-09-28 21:11] LABS: AUTOMATED NEUTROPHIL # 5.6 TH/MM3 (1.8-7.7); BASOPHIL % 0.5 % (0.0-2.0); CHLORIDE 107 MEQ/L (98-107); EOSINOPHIL # 0.5 TH/MM3 (0-0.4); EOSINOPHIL % 5.7 % (0.0-4.0); HEMATOCRIT 39.9 % (35.0-46.0); HEMOGLOBIN 13.3 GM/DL (11.6-15.3); LYMPH % 23.4 % (9.0-44.0); LYMPHOCYTE # 2.2 TH/MM3 (1.0-4.8); MEAN CELL VOLUME 82.3 FL (80.0-100.0); MEAN CORPUSCULAR HEMOGLOBIN 27.5 PG (27.0-34.0); MEAN CORPUSCULAR HGB CONC 33.4 % (32.0-36.0); MEAN PLATELET VOLUME 8.3 FL (7.0-11.0); MONO % 10.8 % (0.0-8.0); NEUT % 59.6 % (16.0-70.0); PLATELET COUNT 291 TH/MM3 (150-450); RED BLOOD COUNT 4.85 MIL/MM3 (4.00-5.30); SODIUM (NA) 140 MEQ/L (136-145); WHITE BLOOD COUNT 9.3 TH/MM3 (4.0-11.0)
[2017-09-28 21:12] LABS: BILIRUBIN, URINE NEG (NEG); BLOOD, URINE MOD (NEG); GLUCOSE,URINE NEG (NEG); KETONE, URINE NEG (NEG); NITRITE,URINE NEG (NEG); URINE COLOR YELLOW (YELLW/STRAW); URINE LEUKOCYTE ESTERASE NEG (NEG)
[2017-09-28 21:14] LABS: ALBUMIN 4.1 GM/DL (3.4-5.0); BICARBONATE 28.8 MEQ/L (21.0-32.0); BLOOD UREA NITROGEN 9 MG/DL (7-18); CALCIUM 9.1 MG/DL (8.5-10.1); GLUCOSE,RANDOM 75 MG/DL (74-106)
[2017-09-28 21:17] LABS: ALT (GPT) 13 U/L (10-53); AST (GOT) 13 U/L (15-37); CREATININE 0.82 MG/DL (0.50-1.00); GLOMERULAR FILTRATION RATE 87 ML/MIN (>89)
[2017-09-28 21:19] LABS: TOTAL BILIRUBIN ADULT 1.3 MG/DL (0.2-1.0); TOTAL PROTEIN 8.1 GM/DL (6.4-8.2)
[2017-09-28 21:20] LABS: ALKALINE PHOSPHATASE 81 U/L (45-117)
[2017-09-28 21:24] LABS: AMORPHOUS SEDIMENT, URINE MOD; BACTERIA, URINE MANY /hpf; MUCUS URINE MOD /lpf (OCC); SQUAMOUS EPITHELIAL CELL URINE > 8 /hpf (0-5)
[2017-09-28 21:25] LABS: RBC, URINE 0-3 /hpf (0-3); WBC, URINE 0-2 /hpf (0-5)
--- NOTE | 2017-09-28 21:48 | RADRPT ---
EXAM DATE/TIME: 09/28/2017 20:46 [facility] COMPARISON: CT ABDOMEN & PELVIS W/O CONTRAST, July 31, 2017, 19:06. INDICATIONS : Right flank pain. MEDICAL HISTORY : Asthma. Endometriosis. Kidney stones. SURGICAL HISTORY : None. ENCOUNTER: Initial ACUITY: 1 day PAIN SCORE: 7/10 LOCATION: Bilateral flank MEASUREMENTS: RIGHT KIDNEY: 9.7 x 4.2 x 3.4 cm LEFT KIDNEY: 10.3 x 4.3 x 4.6 cm FINDINGS: RIGHT KIDNEY: Renal cortex is normal in thickness and echotexture. No hydronephrosis, stone, or mass. LEFT KIDNEY: Renal cortex is normal in thickness and echotexture. No hydronephrosis, stone, or mass. BLADDER: Within normal limits given the degree of distension. CONCLUSION: Normal ultrasound of the urinary system. No renal stones are visualized. Bert Godoy MD on September 28, 2017 at 21:44 Board Certified Radiologist. This report was verified electronically.
[2017-09-28 22:31] VITALS: BP 97/57; PULSE 77; RESP 14; O2SAT 98
--- NOTE | 2017-09-28 22:35 | RADRPT ---
EXAM DATE/TIME: 09/28/2017 22:13 [facility] COMPARISON: CT ABDOMEN & PELVIS W/O CONTRAST, July 31, 2017, 19:06. INDICATIONS : Right flank pain. ORAL CONTRAST: No oral contrast ingested. RADIATION DOSE: 4.04 CTDIvol (mGy) MEDICAL HISTORY : None SURGICAL HISTORY : None. ENCOUNTER: Initial ACUITY: 1 day PAIN SCALE: 8/10 LOCATION: Right flank TECHNIQUE: Volumetric scanning of the abdomen and pelvis was performed. Using automated exposure control and ad justment of the mA and/or kV according to patient size, radiation dose was kept as low as reasonably achievable to obtain optimal diagnostic quality images. DICOM format image data is available electro nically for review and comparison. FINDINGS: LOWER LUNGS: The visualized lower lungs are clear. LIVER: Homogeneous density without lesion. There is no dilation of the biliary tree. No calcified gallston es. SPLEEN: Normal size without lesion. PANCREAS: No acute abnormality. KIDNEYS: Normal in size and shape. There is no mass, stone, or hydronephrosis. No ureteral stones are visuali zed. There is a stable calcification in the right pelvis. ADRENAL GLANDS: Within normal limits. VASCULAR: There is no aortic aneurysm. BOWEL/MESENTERY: The stomach, small bowel, and colon demonstrate no acute abnormality. There is no free intraperitone al air. There is trace free fluid in the pelvis. Appendix is normal. ABDOMINAL WALL: Within normal limits. RETROPERITONEUM: There is no lymphadenopathy. BLADDER: No wall thickening or mass. REPRODUCTIVE: Within normal limits. INGUINAL: There is no lymphadenopathy or hernia. MUSCULOSKELETAL: No acute abnormality. CONCLUSION: 1. No abnormality is identified to explain the right flank pain on this noncontrast low-dose exam. No renal stones are present. 2. Appendix is normal. 3. There is trace free fluid in the pelvis. Bert Godoy MD on September 28, 2017 at 22:27 Board Certified Radiologist. This report was verified electronically.
[2017-09-28] MEDS ORDERED: SODIUM CHLOR 0.9% 1000 ML INJ 1,000 ML IV ONE (22:45)
[2017-09-28] MEDS ORDERED: IBUP-232 PO (22:48)
[2017-09-28] MEDS ORDERED: MACR100C2 PO (22:48)
[2017-09-28] MEDS ORDERED: ZOFR4TAB3 SL (22:48)
[2017-09-29 00:06] VITALS: BP 100/62
== END 2017-09-29 00:09 | disposition home or self-care (01) ==
LOC: PHED 20:12
DX: N39.0 Urinary tract infection, site not specified (principal); J45.909 Unspecified asthma, uncomplicated; Z87.442 Personal history of urinary calculi; Z88.0 Allergy status to penicillin; Z88.2 Allergy status to sulfonamides; Z88.8 Allergy status to other drugs, medicaments and biological substances
CPT/HCPCS: 74176; 76775; 80053; 81001; 83690; 84703; 85025; 87086; 96361; 96374; 96375; 99285; J1885; J2405; J7030